=== PATIENT | male | born 1945 | race Caucasian/White ===

== ENCOUNTER 2018-04-25 09:17 | Inpatient (IN) | payer MEDICARE, OTHER, SELFPAY ==
[2018-04-25] VITALS (11 sets, daily range): BP systolic 127–183; BP diastolic 69–87; PULSE 50–67; RESP 16–18; TEMP 36.4–37.2; O2SAT 94–99; BMI 27.0; BMI 26.1
--- NOTE | 2018-04-25 09:40 | CT_ITS ---
STUDY: CTA NECK WITH CONTRAST REASON FOR EXAM: Male, 72 years old. 2 day history of intermittent dizziness. RADIATION DOSAGE (If Supplied By Facility): CTDIvol = ( 28.52 ) mGy, DLP = ( 1692.03 ) mGycm TECHNIQUE: CT angiography with multi-detector data acquisition was performed from the aortic arch to the skull base following intravenous administration of 100 ml of Isovue 370 contrast. MIP images were reconstructed from the axial data set. Post-processing of the angiographic images was performed, with multiplanar reformation and 3D reconstruction. Individualized dose optimization techniques were used for this CT. COMPARISON: None. FINDINGS: AORTIC ARCH: Normal visualized aortic arch. Normal origins of the brachiocephalic, left common carotid, and left subclavian arteries. RIGHT CAROTID ARTERIES: Normal right common carotid artery (CCA). Normal right common carotid bulb. Normal origin of the right internal carotid (ICA) artery without a hemodynamically significant stenosis. Normal visualized cervical portion of the right internal carotid artery. Minimal plaque along the posterior aspect of the proximal portion of the right internal carotid artery. Normal origin of the right external carotid artery (ECA). LEFT CAROTID ARTERIES: Normal left common carotid artery (CCA). Normal left common carotid bulb. Normal origin of the left internal carotid (ICA) artery without a hemodynamically significant stenosis. Normal visualized cervical portion of the left internal carotid artery. Minimal calcific plaque along the lateral aspect of the proximal portion of the left internal carotid artery. Normal origin of the left external carotid artery (ECA). VERTEBRAL ARTERIES: There is enhancement within the bilateral vertebral arteries with a small left vertebral artery, and a dominant right vertebral artery. 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 CT/CTA Neck W/WO Contrast IMPRESSION: No significant abnormality is seen. Electronically Signed: Tom Reed MD at 10:42 EDT Tel [phone], Service support ,
--- NOTE | 2018-04-25 09:40 | CT_ITS ---
STUDY: CTA OF THE BRAIN REASON FOR EXAM: Male, 72 years old. 2 day history of intermittent dizziness. RADIATION DOSAGE (If Supplied By Facility): CTDIvol = ( 28.52 ) mGy, DLP = ( 1692.03 ) mGycm TECHNIQUE: CT angiography was performed with a multi-detector CT scanner. Data acquisition was obtained from the skull base through the vertex following intravenous administration of 100 ml of Isovue-370. MIP images were reconstructed from the axial data set. Post-processing of the angiographic images was performed, with multiplanar reformation and 3D reconstruction. Individualized dose optimization techniques were used for this CT. COMPARISON: None. FINDINGS: Normal bilateral petrous carotid arteries. There is calcified plaque formation of the right cavernous carotid artery, without a cross-sectional luminal stenosis. There is calcified plaque formation of the left cavernous carotid artery, without a cross-sectional luminal stenosis. Normal right A1 segments of the anterior cerebral artery. Normal left A1 segments of the anterior cerebral artery. Normal intact anterior communicating artery (ACOM). Normal bilateral A2 segments of the anterior cerebral arteries. Normal right M1 and M2 segments of the middle cerebral arteries, with a normal M1 bifurcation. Normal left M1 and M2 segments of the middle cerebral arteries, with a normal M1 bifurcation. Normal right posterior communicating artery (PCOM). Normal left posterior communicating artery (PCOM). Normal bilateral vertebral arteries. Normal basilar artery with a normal basilar bifurcation. The visualized bilateral superior cerebellar (SCA) arteries are normal. Normal bilateral P1, P2 and visualized P3 segments of the posterior cerebral arteries. There is no demonstrated aneurysm of the [place]. There is no demonstrated abnormality of the visualized brain. Atherosclerotic calcification of the vertebral arteries. CT/CTA Head W/WO Contrast IMPRESSION: Normal [place] without a demonstrated aneurysm or hemodynamically significant stenosis. Electronically Signed: Tom Reed MD at 10:40 EDT Tel [phone], Service support ,
--- NOTE | 2018-04-25 09:41 | EKG12_ITS ---
Test Reason : DIZZINESS Blood Pressure : / mmHG Vent. Rate : 062 BPM Atrial Rate : 062 BPM P-R Int : 156 ms QRS Dur : 090 ms QT Int : 430 ms P-R-T Axes : 024 -14 051 degrees QTc Int : 436 ms Normal sinus rhythm Normal ECG Confirmed by JULIETTE LIND, GIOVANNI ([id number]), restaurant expeditor JOSSELIN SLAUGHTER ([id number]) on 04/28/2018 1:23:54 PM Referred By: KEENA Confirmed By:GIOVANNI SEGOVIA MD
[2018-04-25 09:56] LABS: Absolute Lymphocyte Count 1.73 X10^3/ul (0.83-4.51); Basophil# 0.02 X10^3/uL; Basophil% 0.4 % (0-1); Eosinophil# 0.16 X10^3/uL; Eosinophils% 3.1 % (0-5); Hemoglobin 17.6 g/dl (13.0-16.5); Lymphocyte # 1.73 X10^3/ul (4.0); Mean Corp Hgb Conc 35.2 g/gl (32-36); Mean Corpuscular Hgb 33.1 pg (27.0-32.0); Mean Corpuscular Volume 94.2 fL (80-94); Mean Platelet Vol. 8.7 fl (6.2-12.0); Monocyte# 0.31 X10^3/uL; Monocyte% 5.9 % (0-10); Neutrophil # 3.02 X10^3/uL (2.7-7.7); Neutrophil % 57.6 % (47-70); POSITIVE COUNT NO; POSITIVE DIFFERENTIAL NO; POSITIVE MORPHOLOGY NO; Platelet Count 160 K/mm3 (150-450); RBC Distribution Width CV 12.8 % (11.6-14.6); RBC Distribution Width SD 43.8 fl (35.1-43.9); Red Blood Count 5.31 M/mm3 (4.6-6.2); White Blood Count 5.2 K/mm3 (4.4-11.0)
[2018-04-25 10:02] LABS: Partial Thromboplast Time 29.7 Seconds (24.1-36.2)
[2018-04-25 10:05] LABS: Anion Gap 6 (5-15); BUN 12 mg/dL (7-18); BUN/Creat Ratio 10.3 RATIO (10-20); Chloride 104 mmol/L (98-107); Creatinine, Serum 1.16 mg/dL (0.70-1.30); EST Glomerular Filtration Rate 66 mL/min (>60); Est Glom Filt Rate - Afr Amer 80 mL/min (>60); Estimated Creatinine Clearance 60.31 ml/min; Glucose 151 mg/dL (74-106); Potassium 3.9 mmol/L (3.5-5.1); Sodium Level 138 mmol/L (136-145)
--- NOTE | 2018-04-25 10:54 | ED.VISSUMM ---
- ER Visit Summary Date of Service: 04/25/18 Chief Complaint: Dizziness History of Present Illness: The patient is a 72 M with dizziness. Based on his history of present illness is difficult to distinguish between disequilibrium or lightheadedness, he certainly has no vertigo. He has no vision changes, chest pain shortness of breath fever or chills. No headache. No weakness or numbness. He had 2 episodes of this in the past 2 days. No nausea or vomiting. Physical Examination: Not appear in acute distress. Moist mucous membranes, no obvious facial deformity No C-spine tenderness supple neck. Regular rate and rhythm without any obvious murmurs Clear lungs bilaterally speaking in full sentences without any obvious respiratory distress Abdomen soft and nontender no guarding or rebound Moves all extremities without any difficulty or pain. Skin does not show any obvious rashes or lesions, no trauma. Alert oriented ?3 with no gross focal deficit. His NIH stroke scale is 0 is done by me. He has a negative Romberg. Normal [id number], normal. Cerebellar exam. No nystagmus. Emergency Department Course and Treatment: Patient has an unremarkable workup, including CT angiogram and blood work, this may be dehydration because he did improve significantly after IV fluids. He will be discharged to follow-up with his PCP. Disposition: Discharge stable condition Impression: Dizziness resolved This note was generated with [employer] dictation software. It may contain incorrect words, spelling, and punctuation that were not noted in review of the chart prior to signing ED Disposition - Plan for ED Patient: Disposition: Home or Assisted Living Chief Complaint: Dizziness Instructions: ED Dizziness [facility] Referrals: Kvng Coronado MD [Primary Care Provider] - 3-5 Days
--- NOTE | 2018-04-25 10:57 | ED.DCSUM_ITS ---
- ER Visit Summary Date of Service: 04/25/18 Chief Complaint: Dizziness History of Present Illness: The patient is a 72 M with dizziness. Based on his history of present illness is difficult to distinguish between disequilibrium or lightheadedness, he certainly has no vertigo. He has no vision changes, chest pain shortness of breath fever or chills. No headache. No weakness or numbness. He had 2 episodes of this in the past 2 days. No nausea or vomiting. Physical Examination: Not appear in acute distress. Moist mucous membranes, no obvious facial deformity No C-spine tenderness supple neck. Regular rate and rhythm without any obvious murmurs Clear lungs bilaterally speaking in full sentences without any obvious respiratory distress Abdomen soft and nontender no guarding or rebound Moves all extremities without any difficulty or pain. Skin does not show any obvious rashes or lesions, no trauma. Alert oriented ?3 with no gross focal deficit. His NIH stroke scale is 0 is done by me. He has a negative Romberg. Normal [id number], normal. Cerebellar exam. No nystagmus. Emergency Department Course and Treatment: Patient has an unremarkable workup, including CT angiogram and blood work, this may be dehydration because he did improve significantly after IV fluids. He will be discharged to follow-up with his PCP. Disposition: Discharge stable condition Impression: Dizziness resolved This note was generated with [employer] dictation software. It may contain incorrect words, spelling, and punctuation that were not noted in review of the chart prior to signing ED Disposition - Plan for ED Patient: Disposition: Home or Assisted Living Chief Complaint: Dizziness Instructions: ED Dizziness [facility] Referrals: Kvng Coronado MD [Primary Care Provider] - 3-5 Days
--- NOTE | 2018-04-25 11:25 | ED.RN ---
REVIEWING DC INSTRUCTIONS WITH PT ANS . PT WAS DISCONNECTED TO MONITOR AND GETTING READY TO GO. PT HAD SUDDEN ONSET OF DIZZINESS WHILE RESTING/SITTING IN THE BED. DIAPHORETIC AND CLAMMY HANDS. BS 125. BEGAIN RECONNECTING PT TO MONITOR. PT REPORTS SUDDEN RESOLUTION OF SX. MONOT READING SINUS ALEXIS. VSS. DR BRIZUELA NOTIFIED OF PT EPISODE.
[2018-04-25 11:36] LABS: Bedside Glucose 125 mg/dL (70-110)
--- NOTE | 2018-04-25 11:44 | ED.VISSUMM ---
- ER Visit Summary Date of Service: 04/25/18 Patient was getting up he had an episode where he became quite diaphoretic and felt quite weak, this was witnessed by the nurse, apparently he was diaphoretic, and quite clammy. At the time he was not on a monitor, at this time I am worried about an arrhythmia because of this I will admit for observation on telemetry This note was generated with Cross[employer] dictation software. It may contain incorrect words, spelling, and punctuation that were not noted in review of the chart prior to signing ED Disposition - Plan for ED Patient: Disposition: Home or Assisted Living Chief Complaint: Dizziness Instructions: ED Dizziness [facility] Referrals: Kvng Coronado MD [Primary Care Provider] - 3-5 Days
--- NOTE | 2018-04-25 11:47 | ED.DCSUM_ITS ---
- ER Visit Summary Date of Service: 04/25/18 Patient was getting up he had an episode where he became quite diaphoretic and felt quite weak, this was witnessed by the nurse, apparently he was diaphoretic , and quite clammy. At the time he was not on a monitor, at this time I am worried about an arrhythmia because of this I will admit for observation on telemetry This note was generated with Hel[employer] dictation software. It may contain incorrect words, spelling, and punctuation that were not noted in review of the chart prior to signing ED Disposition - Plan for ED Patient: Disposition: Home or Assisted Living Chief Complaint: Dizziness Instructions: ED Dizziness [facility] Referrals: Kvng Coronado MD [Primary Care Provider] - 3-5 Days
--- NOTE | 2018-04-25 12:14 | NURSING ---
DR EDUARDA BRIZUELA
--- NOTE | 2018-04-25 12:19 | ED.RN ---
PRESENTS TO DESK STATING MY IS FEELING CLAMMY. HR NOTED TO BE IN LOW 50'S-UPPER 40'S AT THIS TIME. PT REMAINS A&OX3, WITH COMPLAINTS OF FEELING DIZZY AND DIAPHORETIC. AWAITING ADMISSION AT THIS TIME.
--- NOTE | 2018-04-25 12:23 | PCM.HP.STD ---
Problem List (1) Dizziness Status: Acute (2) Essential (primary) hypertension Status: Chronic (3) Gout Status: Chronic History of Present Illness Date of Admission: 04/25/18 Chief Complaint: Dizziness The patient is a 72 year old M with past medical history is none for hypertension, gout who presented with dizziness. Patient symptoms started a day prior to coming in he was apparently walking to a restaurant when his symptoms occurred. Later did resolve however he had recurrence on the morning of his presentation. He had to hold out onto the wall in order to ambulate. Patient was seen in the emergency department found to be relatively bradycardic with heart rates in the 50s. CT of the head, CTA of the head and neck obtained in the emergency department came back unremarkable patient was admitted to monitored bed for subsequent evaluation Past Medical History Past Medical History (Chronic Problems): Chronic Problems Essential (primary) hypertension (Chronic) Gout (Chronic) Allergies No Known Allergies Allergy (Verified 04/25/18 09:18) Home Medications: Ambulatory Orders Medication Instructions Recorded Amlodipine [Norvasc] 10 mg PO QHS 04/25/18 Aspirin [Aspirin, Baby] 81 mg PO QHS 04/25/18 Febuxostat [Uloric] 80 mg PO DAILY 04/25/18 Lisinopril [Zestril] 40 mg PO QHS 04/25/18 Metoprolol Tartrate [Lopressor 50 mg PO QHS 04/25/18 (beta joy)] Smoking Status: Never smoker - *Family History Paternal History Items: Heart Disease Review of Systems Constitutional: Denies: Anorexia, Chills, Fever, Night Sweats, Weight Change HEENT: Denies: Head Aches, Sinus Congestion, Sinus Drainage Cardiovascular: Denies: Chest Pain, Orthopnea, Palpitations, Paroxysmal Noc. Dyspnea Respiratory: Denies: Cough, Shortness of breath at rest, Shortness of breath upon exertion, Sputum production Gastrointestinal: Denies: Abdominal Pain, Hematemesis, Hematochezia, Nausea, Melena, Vomiting Genitourinary: Denies: Dysuria, Frequency, Hematuria, Urgency Musculoskeletal: Denies: Joint Pain, Joint Tenderness Skin: Denies: Rash Neurological: Denies: Focal weakness, Numbness, Tingling Psychiatric: Denies: Homicidal Ideations, Suicidal Ideations Hematologic/ Lymphatic: Denies: Easy Bruising, Easy Bleeding VTE Information - Inpt Only VTE Present on Admission: No VTE Mechan Device Prophylaxis: Knee High SALMA Hose VTE Pharm Prophylaxis ordered?: Yes Patient Problems: Active and Suspected Problems Dizziness (Acute) BPH (benign prostatic hyperplasia) (Acute) Objective: GENERAL: cooperative HEENT: Clear conjunctiva, moist oral mucosa NECK; supple, normal thyroid, no distended JVD. CHEST: Clear to auscultation bilaterally, HEART: Regular S1 S2, no audible murmurs ABDOMEN: soft, non-tender, normoactive bowel sounds, RECTAL: deferred EXTREMITIES: No edema, no clubbing, no cyanosis. OXYACETYLENE BURNER: Awake; no lateralizing signs. SKIN: No Rash - Physical Exam Vital Signs Temp Pulse Resp BP Pulse Ox 97.9 F 58 L 18 138/82 H 99 04/25/18 09:18 04/25/18 11:36 04/25/18 11:36 04/25/18 11:36 04/25/18 11:36 Oxygen Delivery Method Room Air Weight: 85.5 kg Body Mass Index (BMI) 27.0 Laboratory Tests Past 24 Hrs 04/25/18 04/25/18 04/25/18 09:23 09:23 09:23 WBC 5.2 RBC 5.31 Hgb 17.6 H Hct 50.0 MCV 94.2 H MCH 33.1 H MCHC 35.2 RDW 12.8 RDW Differential 43.8 Plt Count 160 MPV 8.7 Immature Gran % (Auto) 0.000 Neut % (Auto) 57.6 Lymph % (Auto) 33.0 [place] % (Auto) 5.9 Eos % (Auto) 3.1 Baso % (Auto) 0.4 Absolute Neuts (auto) 3.0 Absolute Lymphs (auto) 1.73 Total Counted Not Reportable PT 13.0 INR 1.0 APTT 29.7 Sodium 138 Potassium 3.9 Chloride 104 Carbon Dioxide 28.0 Anion Gap 6 BUN 12 Creatinine 1.16 Estim Creat Clear Calc 60.31 Est GFR (MDRD) Af Amer 80 Est GFR (MDRD) Non-Af 66 BUN/Creatinine Ratio 10.3 Glucose 151 H Calcium 9.0 Troponin I < 0.015 POC Glucose 04/25/18 11:28 POC Glucose 125 H Assessment/Plan All Active Problems Dizziness (Acute) BPH (benign prostatic hyperplasia) (Acute) Patient is a 72 year old gentleman presented with dizziness 1. Acute dizziness: Patient has been admitted to a monitored bed. As part of his management ordered every 4 neuro checks, MRI of the brain to rule out posterior circulation CVA. CT angiogram of the head and neck obtained as part of his initial assessment came back unremarkable. 2. Hypertension-blood pressure controlled, home medications continued with dose adjustment as needed 3. Gout patient is on Urolic did continue 4. DVT prophylaxis SC Lovenox Code Visit OBSV E&M: 14822 Initial observation care L3
--- NOTE | 2018-04-25 15:41 | MRI_ITS ---
STUDY: MRI BRAIN WITHOUT CONTRAST REASON FOR EXAM: Male, 72 years old. Syncope and dizziness TECHNIQUE: Standardized multiplanar fat and water weighted pulse sequences were obtained. COMPARISON: None. FINDINGS: Normal size of the ventricles and extra-axial spaces for the patient's age. Mild periventricular white matter ischemic change without evidence for acute infarct.. There is restricted diffusion in left cerebellar hemisphere consistent with acute ischemic changes Normal bilateral basal ganglia. Normal thalami. There is no extra-axial fluid accumulation. Normal flow voids within the major intracranial circulation suggesting patency by spin echo criteria except for increased signal within the left vertebral artery consistent with delayed flow or occlusion. Normal sella turcica, pituitary gland, infundibular stalk, optic chiasm and hypothalamus. Normal tectal plate and pineal gland. Normal midbrain, brian and medulla. Normal basal cisterns. Normal bilateral temporal bones. Normal bilateral internal auditory canals. No demonstrated orbital abnormality, within the constraints of a routine brain study. Minor mucosal thickening in the maxillary and ethmoid sinuses.. Normal calvarium and skull base. Normal visualized soft tissue structures. Normal visualized upper cervical spine. 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 Electronically Signed: Tin Ashton MD at 18:35 EDT , Service support ,
[2018-04-25 16:26] LABS: Magnesium 2.2 mg/dL (1.6-2.6); Thyroid Stim Hormone (TSH) 2.51 uIU/mL (0.358-3.74)
[2018-04-25] MEDS: CLARIFY ORDER NOTE (16:45)
--- NOTE | 2018-04-25 20:44 | NURSING ---
Dr. Luis Franklin notified of positive MRI results. Asked if any doctor to see pt. irizarry and give results. MD will see in AM since [facility] is 0.
[2018-04-25] MEDS: Metoprolol Tartrate 50 MG Tablet PO (21:58)
[2018-04-25] MEDS: Atorvastatin Calcium 20 MG Tablet PO (21:58)
[2018-04-25] MEDS: Aspirin 81 MG TAB.CHEW PO (21:58)
[2018-04-25] MEDS: Febuxostat 40 MG TABLET 80 MG PO (21:59)
[2018-04-25] MEDS: Lisinopril 40 MG Tablet PO (21:59)
[2018-04-25] MEDS: amLODIPine 10 MG Tablet PO (22:00)
[2018-04-26] VITALS (13 sets, daily range): BP systolic 121–146; BP diastolic 77–91; PULSE 46–73; RESP 16–20; TEMP 36.6–37.2; O2SAT 95–96; BMI 26.1
[2018-04-26 06:47] LABS: Anion Gap 8 (5-15); BUN 13 mg/dL (7-18); Calcium,Total 8.7 mg/dL (8.5-10.1); Chloride 109 mmol/L (98-107); Cholesterol 219 mg/dL (200); EST Glomerular Filtration Rate 78 mL/min (>60); Est Glom Filt Rate - Afr Amer 95 mL/min (>60); Estimated Creatinine Clearance 69.96 ml/min; Glucose 97 mg/dL (74-106); High Density Lipoprotein 42 mg/dL; Potassium 4.1 mmol/L (3.5-5.1); Sodium Level 144 mmol/L (136-145); Triglycerides 194 mg/dL; Very Low Density Lipoprotein 39 mg/dL (5-40)
--- NOTE | 2018-04-26 09:02 | PCM.PN.HOSP ---
Patient Problems: Active and Suspected Problems Dizziness (Acute) BPH (benign prostatic hyperplasia) (Acute) Subjective: Patient is a 72-year-old gentleman with past medical history significant for hypertension who presented with dizziness. 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 Objective: GENERAL: cooperative HEENT: Clear conjunctiva, moist oral mucosa NECK; supple, normal thyroid, no distended JVD. CHEST: Clear to auscultation bilaterally, HEART: Regular S1 S2, no audible murmurs ABDOMEN: soft, non-tender, normoactive bowel sounds, RECTAL: deferred EXTREMITIES: No edema, no clubbing, no cyanosis. PHARMACIST CRITICAL CARE: Awake; no lateralizing signs. SKIN: No Rash Vitals/I&O's: Vital Signs Temp Pulse Resp BP Pulse Ox 99.0 F 51 L 16 144/77 H 96 04/26/18 06:11 04/26/18 06:55 04/26/18 06:11 04/26/18 06:11 04/26/18 06:11 Oxygen Delivery Method Room Air Weight: 82.6 kg Body Mass Index (BMI) 26.1 Intake and Output for Last 24 Hours 04/24/18 04/25/18 04/26/18 23:59 23:59 23:59 Intake Total 560 / 560 Balance 560 / 560 Laboratory Results 04/25/18 16:19: Troponin I < 0.015 04/25/18 19:14: Troponin I < 0.015 04/26/18 05:45: Sodium 144, Potassium 4.1, Chloride 109 H, Carbon Dioxide 27.0, Anion Gap 8, BUN 13, Creatinine 1.00, Estim Creat Clear Calc 69.96, Est GFR (MDRD) Af Amer 95, Est GFR (MDRD) Non-Af 78, BUN/Creatinine Ratio 13.0, Glucose 97, Calcium 8.7, Triglycerides 194, Cholesterol 219 H, LDL Cholesterol 138 H, VLDL Cholesterol 39, HDL Cholesterol 42 Current Medications Acetaminophen (Tylenol) 650 mg PO Q6H PRN PRN PRN Reason: Mild Pain (scale 0-3)/T>100.7 Al Hydroxide/Mg Hydroxide (Mylanta Ii) 30 ml PO Q6H PRN PRN PRN Reason: Gastric Burning Amlodipine Besylate (Norvasc) 10 mg PO QHS [facility] Last Admin: 04/25/18 22:00 Dose: 10 mg Aspirin (Aspirin, Baby) 81 mg PO QHS [facility] Last Admin: 04/25/18 21:58 Dose: 81 mg Atorvastatin Calcium (Lipitor) 20 mg PO QHS [facility] Last Admin: 04/25/18 21:58 Dose: 20 mg Clopidogrel Bisulfate (Plavix) 75 mg PO DAILY [facility] Docusate Sodium (Colace) 200 mg PO BID PRN PRN PRN Reason: Constipation Enoxaparin Sodium (Lovenox) 40 mg SC DAILY@1000 RUBENS Lisinopril (Zestril) 40 mg PO QHS [facility] Last Admin: 04/25/18 21:59 Dose: 40 mg Magnesium Hydroxide (Milk Of Magnesia) 30 ml PO DAILY PRN PRN Reason: Constipation Metoprolol Tartrate (Lopressor (Beta Willa)) 50 mg PO QHS [facility] Last Admin: 04/25/18 21:58 Dose: 50 mg Morphine Sulfate () 2 - 4 mg IV Q3H PRN PRN PRN Reason: Severe Pain (pain scale 6-10) Oxycodone HCl (Oxyir) 5 mg PO Q4H PRN PRN PRN Reason: Moderate Pain (pain scale 4-5) Prochlorperazine Edisylate (Compazine Iv) 10 mg IV Q6H PRN PRN PRN Reason: Nausea/Vomiting Sodium Chloride () 5 - 30 ml IV UD PRN PRN Reason: SALINE FLUSH Zolpidem Tartrate (Ambien (Generic)) 5 mg PO QHS PRN PRN PRN Reason: INSOMNIA Medical Necessity - Tobacco Use Smoking Status: Never smoker Assessment/Plan All Active Problems Dizziness (Acute) BPH (benign prostatic hyperplasia) (Acute) Patient is a 72 year old gentleman presented with dizziness 1. 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 CT Jannie of the head and neck came back unremarkable patient has been managed with dual antiplatelet therapy, starting therapy requested for PT OT eval and consultation was placed to neurology 2. Hypertension-blood pressure controlled, home medications continued with dose adjustment as needed 3. Gout patient is on Urolic did continue 4. DVT prophylaxis SC Lovenox Clinical Impression(s) from Imaging Studies Head CTA 04/25/18 09:40 IMPRESSION: Normal [place] without a demonstrated aneurysm or hemodynamically significant stenosis. Electronically Signed: Tom Reed MD at 10:40 EDT Tel [phone], Service support , Neck CTA 04/25/18 09:40 IMPRESSION: No significant abnormality is seen. Electronically Signed: Tom Reed MD at 10:42 EDT Tel [phone], Service support , Brain MRI 04/25/18 15:41 IMPRESSION: Mild periventricular white matter ischemic changes without evidence for acute infarct. Electronically Signed: Tin Ashton MD at 18:35 EDT , Service support , Code Visit OBSV E&M: 01323 Subsequent observation care L3
--- NOTE | 2018-04-26 09:07 | PN_ITS ---
Patient Problems: Active and Suspected Problems Dizziness (Acute) BPH (benign prostatic hyperplasia) (Acute) Subjective: Patient is a 72-year-old gentleman with past medical history significant for hypertension who presented with dizziness. 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 Objective: GENERAL: cooperative HEENT: Clear conjunctiva, moist oral mucosa NECK; supple, normal thyroid, no distended JVD. CHEST: Clear to auscultation bilaterally, HEART: Regular S1 S2, no audible murmurs ABDOMEN: soft, non-tender, normoactive bowel sounds, RECTAL: deferred EXTREMITIES: No edema, no clubbing, no cyanosis. MULE DRIVER: Awake; no lateralizing signs. SKIN: No Rash Vitals/I&O's: Vital Signs Temp Pulse Resp BP Pulse Ox 99.0 F 51 L 16 144/77 H 96 04/26/18 06:11 04/26/18 06:55 04/26/18 06:11 04/26/18 06:11 04/26/18 06:11 Oxygen Delivery Method Room Air Weight: 82.6 kg Body Mass Index (BMI) 26.1 Intake and Output for Last 24 Hours 04/24/18 04/25/18 04/26/18 23:59 23:59 23:59 Intake Total 560 / 560 Balance 560 / 560 Laboratory Results 04/25/18 16:19: Troponin I < 0.015 04/25/18 19:14: Troponin I < 0.015 04/26/18 05:45: Sodium 144, Potassium 4.1, Chloride 109 H, Carbon Dioxide 27.0, Anion Gap 8, BUN 13, Creatinine 1.00, Estim Creat Clear Calc 69.96, Est GFR ( MDRD) Af Amer 95, Est GFR (MDRD) Non-Af 78, BUN/Creatinine Ratio 13.0, Glucose 97, Calcium 8.7, Triglycerides 194, Cholesterol 219 H, LDL Cholesterol 138 H, VLDL Cholesterol 39, HDL Cholesterol 42 Current Medications Acetaminophen (Tylenol) 650 mg PO Q6H PRN PRN PRN Reason: Mild Pain (scale 0-3)/T>100.7 Al Hydroxide/Mg Hydroxide (Mylanta Ii) 30 ml PO Q6H PRN PRN PRN Reason: Gastric Burning Amlodipine Besylate (Norvasc) 10 mg PO QHS [facility] Last Admin: 04/25/18 22:00 Dose: 10 mg Aspirin (Aspirin, Baby) 81 mg PO QHS [facility] Last Admin: 04/25/18 21:58 Dose: 81 mg Atorvastatin Calcium (Lipitor) 20 mg PO QHS [facility] Last Admin: 04/25/18 21:58 Dose: 20 mg Clopidogrel Bisulfate (Plavix) 75 mg PO DAILY [facility] Docusate Sodium (Colace) 200 mg PO BID PRN PRN PRN Reason: Constipation Enoxaparin Sodium (Lovenox) 40 mg SC DAILY@1000 RUBENS Lisinopril (Zestril) 40 mg PO QHS [facility] Last Admin: 04/25/18 21:59 Dose: 40 mg Magnesium Hydroxide (Milk Of Magnesia) 30 ml PO DAILY PRN PRN Reason: Constipation Metoprolol Tartrate (Lopressor (Beta Willa)) 50 mg PO QHS [facility] Last Admin: 04/25/18 21:58 Dose: 50 mg Morphine Sulfate () 2 - 4 mg IV Q3H PRN PRN PRN Reason: Severe Pain (pain scale 6-10) Oxycodone HCl (Oxyir) 5 mg PO Q4H PRN PRN PRN Reason: Moderate Pain (pain scale 4-5) Prochlorperazine Edisylate (Compazine Iv) 10 mg IV Q6H PRN PRN PRN Reason: Nausea/Vomiting Sodium Chloride () 5 - 30 ml IV UD PRN PRN Reason: SALINE FLUSH Zolpidem Tartrate (Ambien (Generic)) 5 mg PO QHS PRN PRN PRN Reason: INSOMNIA Medical Necessity - Tobacco Use Smoking Status: Never smoker Assessment/Plan All Active Problems Dizziness (Acute) BPH (benign prostatic hyperplasia) (Acute) Patient is a 72 year old gentleman presented with dizziness 1. 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 CT Jannie of the head and neck came back unremarkable patient has been managed with dual antiplatelet therapy, starting therapy requested for PT OT eval and consultation was placed to neurology 2. Hypertension-blood pressure controlled, home medications continued with dose adjustment as needed 3. Gout patient is on Urolic did continue 4. DVT prophylaxis SC Lovenox Clinical Impression(s) from Imaging Studies Head CTA 04/25/18 09:40 IMPRESSION: Normal [place] without a demonstrated aneurysm or hemodynamically significant stenosis. Electronically Signed: Tom Reed MD at 10:40 EDT Tel [phone], Service support , Neck CTA 04/25/18 09:40 IMPRESSION: No significant abnormality is seen. Electronically Signed: Tom Reed MD at 10:42 EDT Tel [phone], Service support , Brain MRI 04/25/18 15:41 IMPRESSION: Mild periventricular white matter ischemic changes without evidence for acute infarct. Electronically Signed: Tin Ashton MD at 18:35 EDT , Service support , Code Visit OBSV E&M: 11235 Subsequent observation care L3
[2018-04-26] MEDS: Enoxaparin 40 MG/0.4 ML Syringe SC (10:09)
[2018-04-26] MEDS: Clopidogrel Bisulfate 75 MG Tablet PO ×2 (10:09→21:41)
--- NOTE | 2018-04-26 13:44 | CASEMGMT ---
Face to Face with patient for initial transition planning/care coordination assessment. KO COFFEY introduced self and role at [facility], pt voices understanding and consents to assessment at this time. Pt is sitting up in bed in no distress at this time. Pt is A/Ox4 at this time and answers all questions appropriately at this time. Care providers, pharmacy, and demographics verified. See attached link. Pt voices no further concerns/needs at this time. Advised pt to ask for CM if any further questions/concerns/needs arise, voices understanding. PLAN: [place]
--- NOTE | 2018-04-26 14:01 | PCM.CONS.GEN ---
Problem List (1) Stroke Status: Acute Qualifiers: CVA mechanism: unspecified Qualified Code(s): I63.9 - Cerebral infarction, unspecified (2) Dizziness Status: Acute Reason for Consult Date of Consultation: 04/26/18 Reason for Consultation: stroke History of Present Illness: The patient is a 72 year old CM with PMH HTN, gout admitted with dizziness. Per patient his dizziness started on Tuesday (04/24/18) when he was in [place] visiting family, he felt light headed and was imbalanced, continued to have symptoms yesterday and then came to ED. Denies any room spinning sensation, denies any focal motor weakness, sensory loss, ESPINAL or visual disturbances. Per patient he had to hold on to walk, and was imbalance with dizziness, denies any nausea and vomiting. MRI brain done on admission showed acute left cerebellar stroke, CTA head/neck showed left vert hypoplastic. [] Past Medical History Past Medical History (Chronic Problems): Chronic Problems Essential (primary) hypertension (Chronic) Gout (Chronic) Allergies No Known Allergies Allergy (Verified 04/25/18 09:18) Home Medications: Ambulatory Orders Medication Instructions Recorded Amlodipine [Norvasc] 10 mg PO QHS 04/25/18 Aspirin [Aspirin, Baby] 81 mg PO QHS 04/25/18 Febuxostat [Uloric] 80 mg PO DAILY 04/25/18 Lisinopril [Zestril] 40 mg PO QHS 04/25/18 Metoprolol Tartrate [Lopressor 50 mg PO QHS 04/25/18 (beta joy)] Lives: Spouse/ Significant Other Smoking Status: Never smoker Alcohol: Occasional Drugs: None - *Family History Paternal History Items: Heart Disease Review of Systems Constitutional: Reports: - - complete ROS negative except as documented in HPI Patient Problems: Active and Suspected Problems Dizziness (Acute) BPH (benign prostatic hyperplasia) (Acute) Stroke (Acute) - Physical Exam General: Alert HEENT: Atraumatic, Normocephalic Oral: Moist Mucosa Neck: Supple Lungs: Clear to auscultation Cardiovascular: Normal S1, Normal S2 Abdomen: Bowel Sounds Present Extremities: No cyanosis Skin: No rashes Musculoskeletal: No Tenderness to Palpation of Joints or Extremities Neurological: - - consious, alert, AoAx3, CN 2-12 grossly intact, power 5/5 all 4 extremities, no sensory loss, no cerebellar signs, Reflexes + B/L B/S/T/K/A, gait deferred, NIHSS 0 at present. Psych/Mental Status: Normal Affect Vital Signs Temp Pulse Resp BP Pulse Ox 98.7 F 60 16 146/89 H 95 04/26/18 10:05 04/26/18 11:00 04/26/18 10:05 04/26/18 10:05 04/26/18 10:05 Oxygen Delivery Method Room Air Intake and Output for Last 24 Hours 04/24/18 04/25/18 04/26/18 23:59 23:59 23:59 Intake Total 360 / 360 Balance 360 / 360 Assessment/Plan All Active Problems Dizziness (Acute) BPH (benign prostatic hyperplasia) (Acute) Stroke (Acute) The patient is a 72 year old CM with PMH HTN, gout admitted with dizziness. Per patient his dizziness started on Tuesday (04/24/18) when he was in [place] visiting family, he felt light headed and was imbalanced, continued to have symptoms yesterday and then came to ED. Denies any room spinning sensation, denies any focal motor weakness, sensory loss, ESPINAL or visual disturbances. Per patient he had to hold on to walk, and was imbalance with dizziness, denies any nausea and vomiting. MRI brain done on admission showed acute left cerebellar stroke, CTA head/neck showed left vert hypoplastic. Impression Acute left cerebellar infarct Plan -MRI brain and CTA head/neck reviewed -ON ASA and started on Plavix. Dual AP for 3 weeks, then switch to single AP, bleeding risks discussed in detail -Lipitor 80 mg PO q hs -Await TTE -LDL-138, await Hba1c -Recommend 30 day event recorder -Stroke risk factors discussed and stroke education provided -Patient counseled to avoid smoking and alcohol -PT/OT -GI/DVT prophylaxis -Fall precautions -Further medical management per primary team. -Follow up with Neurology as outpatient in 2-3 weeks -Please call with questions if any -Thank you for allowing us to participate in patient's care and management I spent 60 minutes taking history, doing physical examination, reviewing medical records, coordinating care and counseling the patient. Code Visit Inpatient E&M: 87856 Init Hosp L3
--- NOTE | 2018-04-26 15:39 | ECHOD_ITS ---
Reason For Study: TIA/CVA Procedure This was a 2D Doppler, Color Flow transthoracic echocardiogram. Exam performed portable in patient room. Left Ventricle Normal size and thickness. The estimated ejection fraction is 65 %. Stage 1 diastolic dysfunction. No regional wall motion abnormalities noted. Right Ventricle Normal size and thickness. Normal systolic function. Atria Normal left atrium. Normal right atrium. Normal atrial septum. Bubble contrast study negative for right to left interatrial shunt. Mitral Valve The mitral valve is structurally normal. No prolapse or stenosis seen. Trivial mitral valve insufficiency. Tricuspid Valve Normal tricuspid valve. Trivial tricuspid valve insufficiency. Unable to estimate RV systolic pressure/pulmonary artery pressure due to technically difficult study. Aortic Valve Normal aortic valve. Trisinus/trileaflet aortic valve. Pulmonic Valve The pulmonic valve is not well visualized. Great Vessels Normal aortic root. Normal arch. Normal inferior vena cava. Inferior vena cava collapse with sniff. Pericardium/Pleural No pericardial effusion. Medication Performed a rapid injection of agitated mix of 9 cc saline and 1cc air to assess for atrial septal defect. MMode/2D Measurements & Calculations LVIDd: 4.9 cm IVSd: 1.3 cm Ao root diam: 3.5 cm LVIDs: 3.2 cm LVPWd: 1.1 cm LA dimension: 3.2 cm FS: 34.7 % LAV(MOD-bp): 60.2 ml LA A4 area: 20.5 cm2 RA A4 area: 15.3 cm2 LAV(MOD-bp) Indexed: 30.0 ml/m2 LAV(MOD-sp2): 50.9 ml LAV(MOD-sp4): 59.1 ml Doppler Measurements & Calculations MV E max daryn: 54.9 cm/sec Lat Peak E' Daryn: 8.1 cm/sec Med Peak E' Daryn: 6.9 cm/sec MV A max daryn: 82.0 cm/sec E/E' lat: 6.8 E/E' med: 7.9 MV E/A: 0.67 Ao V2 max: 140.1 cm/sec LV V1 max: 126.3 cm/sec PA V2 max: 127.9 cm/sec Ao max P.8 mmHg LV V1 max P.4 mmHg Interpretation Summary The estimated ejection fraction is 65 %. Stage 1 diastolic dysfunction. Bubble contrast study negative for right to left interatrial shunt. Trivial mitral valve insufficiency. Trivial tricuspid valve insufficiency. Unable to estimate RV systolic pressure/pulmonary artery pressure due to technically difficult study. Ordering Physician: Ashish Mar Referring Physician: Kvng Coronado M.D. Performed By: Megha Joe RDCS
[2018-04-26 21:28] LABS: Hemoglobin A1c 5.1 % (4.2-6.3)
[2018-04-26] MEDS: Atorvastatin Calcium 80 MG Tablet PO (21:41)
[2018-04-26] MEDS: Metoprolol Tartrate 50 MG Tablet PO (21:41)
[2018-04-26] MEDS: Aspirin 81 MG TAB.CHEW PO (21:41)
[2018-04-26] MEDS: amLODIPine 10 MG Tablet PO (21:42)
[2018-04-26] MEDS: Febuxostat 40 MG TABLET 80 MG PO (21:42)
[2018-04-26] MEDS: Lisinopril 40 MG Tablet PO (21:42)
[2018-04-27 01:15] VITALS: BP 118/76; PULSE 48; RESP 16; TEMP 36.6; O2SAT 94
[2018-04-27 02:15] VITALS: BMI 26.1
[2018-04-27 03:04] VITALS: PULSE 45
[2018-04-27 05:15] VITALS: BP 124/70; PULSE 47; RESP 18; TEMP 36.6; O2SAT 95
[2018-04-27 06:56] VITALS: PULSE 46
[2018-04-27 07:45] VITALS: BMI 26.1
[2018-04-27 09:50] VITALS: BP 160/81; PULSE 54; RESP 18; TEMP 36.9; O2SAT 97
--- NOTE | 2018-04-27 10:33 | DCINST_ITS ---
- Discharge Diagnoses Current Active Problems: Current Active and Chronic Problems Dizziness (Acute) Essential (primary) hypertension (Chronic) BPH (benign prostatic hyperplasia) (Acute) Gout (Chronic) Stroke (Acute) You will use the following diet at home:: Cardiac Your food should be the consistency of: Regular Instructions: ED Dizziness UKO Allergies/Adverse Reactions: Allergies No Known Allergies Allergy (Verified 04/25/18 09:18) Medications to take at Discharge Amlodipine [Norvasc] 10 mg PO QHS 04/25/18 Aspirin [Aspirin, Baby] 81 mg PO QHS 04/25/18 Febuxostat [Uloric] 80 mg PO DAILY 04/25/18 Lisinopril [Zestril] 40 mg PO QHS 04/25/18 Metoprolol Tartrate [Lopressor (beta joy)] 50 mg PO QHS 04/25/18 Atorvastatin Calcium [Lipitor] 80 mg PO QHS #90 tab 04/27/18 Clopidogrel Bisulfate [Plavix] 75 mg PO DAILY #90 tab 04/27/18 The following prescriptions were given: Atorvastatin Calcium [Lipitor] 80 mg PO QHS #90 tab Clopidogrel Bisulfate [Plavix] 75 mg PO DAILY #90 tab Orders to be completed after discharge: Physical Therapy Evaluation Location: None Selected Primary Care Physician: Kvng Coronado MD [Primary Care Provider] - 3-5 Days Test Results: Test results from this visit will be discussed in further detail at your follow- up appointment, if applicable. Please Follow Up With: Marcie Jain MD When: in 1-2 weeks Proposed Discharge Date: 04/27/18
--- NOTE | 2018-04-27 10:35 | DS.PCM_ITS ---
Discharge Date and Diagnosis - Problem List Patient Problems: Active and Suspected Problems Cerebellar stroke (Acute) Dizziness (Acute) BPH (benign prostatic hyperplasia) (Acute) Stroke (Acute) Date of Admission: 04/25/18 Date of Discharge: 04/27/18 - Primary Discharge Diagnosis Active and Suspected Problems Cerebellar stroke (Acute) Dizziness (Acute) BPH (benign prostatic hyperplasia) (Acute) Stroke (Acute) - Secondary Discharge Diagnosis Chronic Problems Essential (primary) hypertension (Chronic) Gout (Chronic) Hospital Course and Treatment Imaging Results: Clinical Impression(s) from Imaging Studies Head CTA 04/25/18 09:40 IMPRESSION: Normal [place] without a demonstrated aneurysm or hemodynamically significant stenosis. Electronically Signed: Tom Reed MD at 10:40 EDT Tel [phone], Service support , Neck CTA 04/25/18 09:40 IMPRESSION: No significant abnormality is seen. Electronically Signed: Tom Reed MD at 10:42 EDT Tel [phone], Service support , Brain MRI 04/25/18 15:41 IMPRESSION: Mild periventricular white matter ischemic changes without evidence for acute infarct. Electronically Signed: Tin Ashton MD at 18:35 EDT , Service support , Summary of Care Provided: Patient is a 72-year-old gentleman with past medical history significant for hypertension who presented with dizziness. 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 1. 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 CT Angioo of the head and neck came back unremarkable patient has been managed with dual antiplatelet therapy, starting therapy requested for PT OT eval and consultation was placed to neurology. Patient was discharged home on dual antiplatelet therapy starting therapy as well as outpatient physical therapy with plans for patient to follow-up with his PCP within 5-7 days as well as Dr. Jain within 1-2 weeks. 2. Hypertension-blood pressure controlled, home medications continued with dose adjustment as needed 3. Gout patient is on Urolic did continue 4. Dyslipidemia new diagnosis patient was discharged home on Lipitor 80 mg p.o. nightly 5. DVT prophylaxis SC Lovenox Discharge Diet: Low fat/ Low Cholesterol Discharge Activity: Return to Normal Activity Home Medications: Medications to take at Discharge Amlodipine [Norvasc] 10 mg PO QHS 04/25/18 Aspirin [Aspirin, Baby] 81 mg PO QHS 04/25/18 Febuxostat [Uloric] 80 mg PO DAILY 04/25/18 Lisinopril [Zestril] 40 mg PO QHS 04/25/18 Metoprolol Tartrate [Lopressor (beta joy)] 50 mg PO QHS 04/25/18 Atorvastatin Calcium [Lipitor] 80 mg PO QHS #90 tab 04/27/18 Clopidogrel Bisulfate [Plavix] 75 mg PO DAILY #90 tab 04/27/18 Following Prescrptions Were Given to Patient: Atorvastatin Calcium [Lipitor] 80 mg PO QHS #90 tab Clopidogrel Bisulfate [Plavix] 75 mg PO DAILY #90 tab Other Amb Orders: Physical Therapy Evaluation Location: None Selected Primary Care Physician: Kvng Coronado MD [Primary Care Provider] - 3-5 Days Please Follow Up With: Marcie Jain MD When: in 1-2 weeks Patient Instructions: ED Dizziness UKO Disposition: Home Minutes spent on discharge:: 35 Patient Condition:: Stable Medical Necessity - Tobacco Use Smoking Status: Never smoker Meaningful Use Info Meaningful Use Diagnoses (Choose all that apply): Ischemic CVA - CVA Therapy Assessed for PT,OT and/or ST?: Yes - Ischemic Stroke Antithrombotic order at d/c?: Yes Dx of Atrial fib/flutter?: No Statins at discharge?: Yes Primary Dx Acute Ischemic CVA?: Yes IV tPA ordered during stay?: No Reason IV t-PA not ordered: Treatment not Indicated Code Visit Inpatient E&M: 96811 Disch Hosp
[2018-04-27] MEDS: Enoxaparin 40 MG/0.4 ML Syringe SC (10:53)
[2018-04-27 11:00] VITALS: PULSE 59
== END 2018-04-27 14:00 | disposition home or self-care (01) | DRG 66 ==
LOC: ED 10:56 → PCU 13:19
PROVIDERS: Psychiatry & Neurology Neurology; Admitting Provider Internal Medicine; Emergency Provider Emergency Medicine; Family Provider Family Medicine; PCP Family Medicine; Visit Provider Internal Medicine
DX: I63.9 Cerebral infarction, unspecified (principal); I10 Essential (primary) hypertension; M10.9 Gout, unspecified; R42 Dizziness and giddiness; N40.0 Benign prostatic hyperplasia without lower urinary tract symptoms; E78.5 Hyperlipidemia, unspecified
CPT/HCPCS: 36415; 70496; 70498; 70551; 80048; 80061; 82962; 83036; 83735; 84443; 84484; 85025; 85610; 85730; 93005; 93306; 97161; 97165; 99283; Q9967

== ENCOUNTER → 2018-07-27 10:02 | Outpatient (CLI) | payer MEDICARE, OTHER, SELFPAY ==
[2018-07-27 12:30] LABS: Cholesterol 146 mg/dL (200); High Density Lipoprotein 52 mg/dL; Triglycerides 113 mg/dL; Very Low Density Lipoprotein 23 mg/dL (5-40)
== END ==
PROVIDERS: Family Provider Family Medicine; PCP Family Medicine; Visit Provider Family Medicine
DX: E78.00 Pure hypercholesterolemia, unspecified (principal)
CPT/HCPCS: 36415; 80061

== ENCOUNTER → 2019-07-02 12:28 | Outpatient (CLI) | payer MEDICARE, OTHER, SELFPAY ==
[2019-07-02 13:58] LABS: Absolute Lymphocyte Count 1.14 X10^3/uL (0.83-4.51); Absolute Neutrophil Count 2.5 X10^3/uL (2.0-7.7); Basophil# 0.03 X10^3/uL; Basophil% 0.7 % (0-1); Eosinophil# 0.05 X10^3/uL; Eosinophils% 1.2 % (0-5); Hematocrit 50.7 % (40-54); Hemoglobin 17.3 g/dL (13.0-16.5); Lymphocyte # 1.14 X10^3/ul (4.0); Lymphocyte % 27.1 % (19-41); Mean Corp Hgb Conc 34.1 g/dL (32-36); Mean Corpuscular Volume 93.7 fL (80-94); Mean Platelet Vol. 8.7 fl (6.2-12.0); Monocyte# 0.46 X10^3/uL; Monocyte% 10.9 % (0-10); NRBC Flagged by Analyzer 0 % (0-5); Neutrophil # 2.52 X10^3/uL (2.7-7.7); Neutrophil % 59.9 % (47-70); Platelet Count 192 K/mm3 (150-450); RBC Distribution Width CV 12.7 % (11.6-14.6); Red Blood Count 5.41 M/mm3 (4.6-6.2); White Blood Count 4.2 K/mm3 (4.4-11.0)
[2019-07-02 14:22] LABS: Anion Gap 5 (5-15); BUN 11 mg/dL (7-18); BUN/Creat Ratio 11.5 RATIO (10-20); Calcium,Total 9.6 mg/dL (8.5-10.1); Chloride 107 mmol/L (98-107); Creatinine, Serum 0.96 mg/dL (0.70-1.30); EST Glomerular Filtration Rate 82 mL/min (>60); Est Glom Filt Rate - Afr Amer 99 mL/min (>60); Glucose 96 mg/dL (74-106); Potassium 4.4 mmol/L (3.5-5.1); Sodium Level 142 mmol/L (136-145)
== END ==
PROVIDERS: Family Provider Family Medicine; PCP Family Medicine; Visit Provider Family Medicine
DX: R53.83 Other fatigue (principal); R97.20 Elevated prostate specific antigen [PSA]
CPT/HCPCS: 36415; 80048; 82306; 84153; 84443; 85025

== ENCOUNTER → 2023-09-12 | Outpatient (CLI) | payer MEDICARE, OTHER, SELFPAY ==
[2023-09-12 13:59] LABS: ALB/GLOB Ratio 1.1 RATIO (0.9-2.4); AST(SGOT) 25 U/L (15-37); Alanine Aminotransfer ALT/SGPT 40 U/L (16-61); Albumin, Serum 3.8 g/dL (3.2-5.0); Alkaline Phosphatase 91 U/L (45-117); Anion Gap 7 (5-15); BUN 12 mg/dL (7-18); BUN/Creat Ratio 11.9 RATIO (10-20); Calcium,Total 9.2 mg/dL (8.5-10.1); Chloride 110 mmol/L (98-107); Cholesterol 172 mg/dL (200); Creatinine, Serum 1.01 mg/dL (0.70-1.30); EST Glomerular Filtration Rate 76 mL/min (>60); Est Glom Filt Rate - Afr Amer 92 mL/min (>60); Globulin 3.5 g/dL (2.2-4.2); Glucose 106 mg/dL (74-106); High Density Lipoprotein 54 mg/dL; Potassium 4.1 mmol/L (3.5-5.1); Protein, Total 7.3 g/dL (6.4-8.2); Sodium Level 143 mmol/L (136-145); Triglycerides 185 mg/dL; Very Low Density Lipoprotein 37 mg/dL (5-40)
== END | disposition home or self-care (01) ==
LOC: MFPLAB 09:45
PROVIDERS: PCP Family Medicine; Visit Provider Family Medicine
DX: E78.00 Pure hypercholesterolemia, unspecified (principal); Z12.5 Encounter for screening for malignant neoplasm of prostate
CPT/HCPCS: 36415; 80053; 80061; 84153; G0103

== ENCOUNTER → 2023-12-27 | Outpatient (CLI) | payer MEDICARE, OTHER, SELFPAY ==
[2023-12-27 10:02] LABS: Absolute Lymphocyte Count 1.87 X10^3/uL (0.83-4.51); Absolute Neutrophil Count 2.4 X10^3/uL (2.0-7.7); Basophil# 0.03 X10^3/uL; Basophil% 0.6 % (0-1); Eosinophil# 0.06 X10^3/uL; Eosinophils% 1.2 % (0-5); Hematocrit 49.9 % (40-54); Hemoglobin 16.4 g/dL (13.0-16.5); Lymphocyte # 1.87 X10^3/ul (0.83-4.51); Lymphocyte % 37.3 % (19-41); Mean Corp Hgb Conc 32.9 g/dL (32-36); Mean Corpuscular Hgb 32.2 pg (27.0-32.0); Mean Platelet Vol. 8.9 fl (6.2-12.0); Monocyte# 0.63 X10^3/uL; Monocyte% 12.6 % (0-10); NRBC Flagged by Analyzer 0 % (0-5); Neutrophil # 2.39 X10^3/uL (2.7-7.7); Neutrophil % 47.7 % (47-70); Platelet Count 251 K/mm3 (150-450); RBC Distribution Width CV 12.8 % (11.6-14.6); Red Blood Count 5.09 M/mm3 (4.6-6.2)
[2023-12-27 10:30] LABS: Anion Gap 3 (5-15); BUN 14 mg/dL (7-18); Calcium,Total 9.5 mg/dL (8.5-10.1); Chloride 113 mmol/L (98-107); EST Glomerular Filtration Rate 77 mL/min (>60); Est Glom Filt Rate - Afr Amer 93 mL/min (>60); Glucose 115 mg/dL (74-106); Potassium 4.2 mmol/L (3.5-5.1); Sodium Level 145 mmol/L (136-145)
== END | disposition home or self-care (01) ==
LOC: MFPLAB 08:42
PROVIDERS: PCP Family Medicine; Visit Provider Family Medicine
DX: R07.9 Chest pain, unspecified (principal)
CPT/HCPCS: 36415; 80048; 85025

== ENCOUNTER → 2024-01-03 | Outpatient (CLI) | payer MEDICARE, OTHER, SELFPAY ==
--- NOTE | 2024-01-03 16:06 | STRESSREP ---
Stress Test Report Exercise myocardial perfusion stress test. 78-year-old man with a history of abnormal EKG Stress protocol: Resting EKG demonstrates normal sinus rhythm with a rate of 61 bpm resting blood pressure is 148/84 mmHg. The patient exercised according to the regular Izaiah protocol for a total duration of 5 minutes and 30 seconds attaining a maximum heart rate of 142 bpm which was 99% of maximum predicted heart rate; the maximum workload was 7 metabolic equivalents. At rest there were no ST or T wave changes noted to suggest ischemia and at peak exercise horizontal ST depression of approximately 1 mm noted in leads II, III and aVF suggestive of ischemia were noted. No clinical angina was noted the test was terminated due to the target heart rate being achieved/fatigue. The peak blood pressure was 192/82 mmHg. Rate-pressure product was 24,700. Myocardial perfusion protocol. 10.7 mCi of technetium 99m sestamibi was injected at rest. The patient exercised according to regular Izaiah protocol for total duration of 5 minutes and 30 seconds and at peak exercise 34.2 mCi of technetium 99m sestamibi was injected stress images were obtained stress and rest images were reconstructed in comparing the short axis vertical long and horizontal long axis. Gated images were also obtained. Perfusion SPECT analysis: Review of the stress images demonstrate normal uptake of tracer noted in all areas of the myocardium however significant portion of the anterior wall and apex demonstrated reduced perfusion. The resting images demonstrate near normal uptake of tracer noted in all areas of the myocardium. The above is suggestive of anteroapical ischemia at a moderate workload. Gated SPECT analysis: The gated ejection fraction is 63%. Conclusion: Abnormal exercise myocardial perfusion stress test at a moderate workload, involving the anterior wall and apex and a moderate size zone. Preserved ejection fraction.
== END | disposition home or self-care (01) ==
LOC: CVS 06:06
PROVIDERS: PCP Family Medicine; Referring Provider Family Medicine; Visit Provider Family Medicine
DX: R07.9 Chest pain, unspecified (principal)
CPT/HCPCS: 78452; 93017; A9500; A4216

== ENCOUNTER 2024-01-10 06:58 | Day surgery (SDC) | payer MEDICARE, OTHER, SELFPAY ==
--- NOTE | 2024-01-06 10:06 | RAD_ITS ---
EXAM: XR CHEST, 2 VIEWS CLINICAL INDICATION: chest pain TECHNIQUE: Frontal and lateral views of the chest. COMPARISON: No relevant prior studies available. FINDINGS: LUNGS AND PLEURAL SPACES: Unremarkable. No consolidation or edema. No pneumothorax. No effusion. HEART: Unremarkable. Cardiac silhouette not enlarged. MEDIASTINUM: Central airways and mediastinal contour are unremarkable. BONES/JOINTS: Mild thoracic spondylosis. No acute fracture. SOFT TISSUES: Unremarkable. RAD/Chest PA and Lateral IMPRESSION: No radiographic evidence of acute cardiopulmonary disease. Electronically Signed: Jing Flores MD at 2:29 EDT ,
[2024-01-09 10:11] VITALS: BMI 27.1
--- NOTE | 2024-01-10 08:36 | CL.D_ITS ---
Patient Name: JANETT ANGELES Study Date: 01/10/2024 Performing: Mack Holbrook MD Ht: 70 inches 177.8 cm : 1945 Wt: 189 lbs 85.73 kg Age: 78 Gender: male BSA: 2.04 PROCEDURE(S) PERFORMED [id number])[facility] CLINICAL PROFILE AND INDICATIONS Indications: Suspected CAD Heart Failure: None Stress/Imaging Date: 01/03/24Stress Test with SPECT MPI: Positive High Risk CAD Presentations: Unstable angina. 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 Preserved ejection fraction. RECOMMENDATIONS Referred for immediate PCI DESCRIPTION OF PROCEDURE The patient arrived to the procedure lab. The risks and benefits of the procedure as well as a full description of our services here and current unavailability of surgical backup were fully explained to the patient and/or their significant other prior to the catheterization. The Timeout was completed, verifying the correct patient and procedure. The patient's procedural site was prepped and draped in the usual fashion. Local anesthetic was given subcutaneously to right radial region with Lidocaine 2%. Using a modified Seldinger technique, arterial access was obtained via the right radial artery, a 6Fr sheath was inserted. Left Coronary Artery selective angiography was performed in multiple views using a 5 Fr. 4.0 Lerona catheter. Right Coronary Artery selective angiography was then performed in multiple views using a 5 Fr. 4.0 Lerona catheter. Left Ventriculography was performed in DENIS projection using a 5 Fr. Pigtail catheter. LV to AO pullback pressures were then recorded. CORONARY ANGIOGRAPHY DOMINANCE: Right Dominant LEFT HEART ASSESSMENT Left Ventricular Ejection Fraction: by LV Gram 60 % Normal LV wall motion Normal Left Ventricular systolic function LEFT MAIN: Mild calcification, No significant disease noted LEFT ANTERIOR DESCENDING ARTERY: Medium size vessel with complex eccentric proximal to mid 95% stenosis with mild calcification present. CIRCUMFLEX ARTERY: Mild luminal irregularities RIGHT CORONARY ARTERY: Mild luminal irregularities COMPLICATIONS PROCEDURE MEDICATIONS Versed 1 mg IV Fentanyl 50 mcg IV Versed 1 mg IV Oxygen: 2 L/min via nasal cannula Heparin given IA 01/10/2024 08:01:52 SUMMARY OF HEMODYNAMIC DATA Time AIR REST AO 144/68 (94) SA 08:14:08 AO 123/63 (86) 08:16:58 LV 112/1, 5 08:22:08 LV 111/1, 5 08:22:16 LV 109/1, 7 08:22:42 LV 105/2, 7 08:22:50 LVp 103/0, 6 08:22:55 AOp 111/50 (73) 08:23:02 ECG 08:25:23 Signed By Mack Holbrook MD On 01/10/2024 08:35:38 Mack Holbrook MD
== END 2024-01-10 15:30 | disposition short-term general hospital (02) ==
LOC: CLSP 06:59
PROVIDERS: PCP Family Medicine; Referring Provider Internal Medicine Cardiovascular Disease; Visit Provider Internal Medicine Cardiovascular Disease
DX: I25.110 Atherosclerotic heart disease of native coronary artery with unstable angina pectoris (principal); I10 Essential (primary) hypertension
CPT/HCPCS: 71046; 93458; 99152; 99153; J7040; Q9967; C1769; C1894

== ENCOUNTER → 2024-02-13 | Outpatient (CLI) | payer MEDICARE, OTHER, SELFPAY ==
[2024-02-13 09:09] VITALS: BMI 27.1
[2024-02-13 10:27] LABS: Hematocrit 46.7 % (40-54); Mean Corp Hgb Conc 34.3 g/dL (32-36); Mean Corpuscular Hgb 32.1 pg (27.0-32.0); Mean Corpuscular Volume 93.8 fL (80-94); Mean Platelet Vol. 8.9 fl (6.2-12.0); Platelet Count 223 K/mm3 (150-450); RBC Distribution Width CV 12.5 % (11.6-14.6); RBC Distribution Width SD 42.6 fl (35.1-43.9); Red Blood Count 4.98 M/mm3 (4.6-6.2); White Blood Count 6.7 K/mm3 (4.4-11.0)
[2024-02-13 11:41] LABS: ALB/GLOB Ratio 1.2 RATIO (0.9-2.4); AST(SGOT) 28 U/L (15-37); Alanine Aminotransfer ALT/SGPT 46 U/L (16-61); Albumin, Serum 4.1 g/dL (3.2-5.0); Alkaline Phosphatase 98 U/L (45-117); Anion Gap 4 (5-15); BUN 12 mg/dL (7-18); BUN/Creat Ratio 12.7 RATIO (10-20); Calcium,Total 9.8 mg/dL (8.5-10.1); Chloride 109 mmol/L (98-107); Creatinine, Serum 0.94 mg/dL (0.70-1.30); EST Glomerular Filtration Rate 82 mL/min (>60); Est Glom Filt Rate - Afr Amer 100 mL/min (>60); Globulin 3.4 g/dL (2.2-4.2); Glucose 97 mg/dL (74-106); Potassium 3.9 mmol/L (3.5-5.1); Protein, Total 7.5 g/dL (6.4-8.2); Sodium Level 140 mmol/L (136-145)
== END | disposition home or self-care (01) ==
LOC: MTLAB 09:28
PROVIDERS: PCP Family Medicine
DX: I25.10 Atherosclerotic heart disease of native coronary artery without angina pectoris (principal)
CPT/HCPCS: 36415; 80053; 85027

== ENCOUNTER → 2024-02-13 | Outpatient (CLI) | payer MEDICARE, OTHER, SELFPAY ==
--- NOTE | 2024-02-13 08:03 | PCM.CR.HP2 ---
CR - History & Physical General Arrival date:: 02/13/24 Arrival time:: 08:03 Date of Referral:: 02/02/24 Date of CR Evaluation:: 02/13/24 Referring Physician: Dr. Holbrook Primary Diagnosis: PCI with coronary stent History of Present Cardiac Event Onset Date PTCA or coronary stenting:: Yes Vessel: LAD 01/11/24 Medications Ambulatory Orders Medication Instructions Recorded amlodipine 10 mg tablet 10 mg PO QHS blood pressure 04/25/18 lisinopril 40 mg tablet 40 mg PO QHS blood pressure 04/25/18 metoprolol tartrate 50 mg tablet 50 mg PO QHS blood pressure 04/25/18 atorvastatin 80 mg tablet 80 mg PO QHS #90 tabs 04/27/18 clopidogrel 75 mg tablet 75 mg PO DAILY #90 tabs 04/27/18 aspirin 81 mg tablet,delayed 81 mg PO DAILY #90 tabs 01/06/24 release (Adult Aspirin Regimen) clonazepam 0.5 mg tablet (Klonopin) 0.5 mg PO BID PRN anxiety 01/06/24 Allergies Allergies Penicillins Adverse Reaction (Severe, Verified 01/06/24 09:31) as a child, passed out after a dental appt Sleep Disorder Evaluation Hx of Sleep Apnea: No Do you snore loudly (louder than talking or can be heard through closed doors)?: No Do you often feel tired/ fatigued/ sleepy during daytime?: No Has anyone observed you stop breathing during sleep?: No History of Hypertension (for STOP score): Yes STOP Results: Negative Advanced Directives Advanced Directives Power of Diabetes Education Coordinator: Yes Living Will: Yes Advance Directives Information Provided: No Advance Directives on File: Yes DNR Order?:: No Past Medical History Covid-19 Screening Physicial Symptoms Other Clinical Concerns Exposure Risk Pertinent Comorbidities 65 years or older:: Yes Has a serious heart condition:: Yes Past Medical Illness Past Medical History (Updated 02/02/24 @ 13:05 by Shiloh Perez) Anxiety F41.9 BPH (benign prostatic hyperplasia) N40.0 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 Chest pain R07.9 Dizziness R42 Essential (primary) hypertension I10 Gout M10.9 Stroke I63.9 Past Surgical History Past Surgical History (Updated 02/02/24 @ 13:07 by Shiloh Perez) History of coronary artery stent placement (01/11/24) Z95.5 PCI of proximal to mid LAD high grade calcified lesion w/ 2 overlapping stents; proximal segment of the stent postdilated with a 3.25mm NC balloon @ [facility] History of prostate surgery Z98.890 Family History Summary Family History Father Hypertension CVA (cerebral vascular accident) Social History Smoking History Smoking Status: Never smoker Alcohol Use Alcohol Usage: Yes Occupation Occupation (List type of work in comments):: Retired Hobbies, Recreation, Social Activities Hobbies: Sports and Other Recreational Activities: I am able to engage in all my recreational activities Social Environment Status Marital Status: Current Living Arrangements Living Environment:: Spouse Children How many children do you have?: 2 Do any of your children live nearby?: Yes Safety Do you feel safe in your surroundings?: Yes Assistance Do you need any assistance at home?: no Review of Systems Review of Systems Hints Review of Present Symptoms: Reports PVD, Fatigue, Appetite - Normal, Appetite - Special Diet and Sleep - Normal; Denies Shortness of Breath at Rest, Shortness of Breath with Exertion, Operative Discomfort, Angina, Wound Healing, Dizziness/Lightheadedness, Heart Arrhythmia/Irregularities or Sexual Changes Pain Is Patient Pain Free?: No Pain Location: pelvis Pain Level: 5/10 Risk Factor Assessment Chief Complaint Chief Complaint: PCI with coronary stent Vital Signs Blood Pressure: 158/91 Pulse Pulse Rate: 71 Hypertension How long have you been treated?: 20-30 years Blood Pressure Sitting - Right Arm: 158/91 Diabetes Nutrition Referral for Diabetes: No Obesity Height: 5 ft 10 in Weight:: 189 lb 8 oz Weight in Pounds: 189.5 lbs Body Mass Index (BMI): 27.1 Nutritional Referral for Obesity: No Physical Inactivity Physical Inactivity: Reg Exercise 30 min/day and Recreational activity Risk Stratification Risk Guidelines: Moderate Risk: Risk Factor for Smoking, Risk Factor for Dyslipidemia, Risk Factor for Diabetes, Risk Factor for Obesity, Risk Factor for Sedentary Lifestyle and Risk Factor for Depression and Highest Risk: Risk Factor for Hypertension For Smoking Smoking Risk Guidelines For Dyslipidemia Dyslipidemia Risk Guidelines For Diabetes Mellitus Diabetes Risk Guidelines For Obesity/Overweight Obesity/Overweight Risk Guidelines For Hypertension Hypertension Risk Guidelines For Sedentary Lifestyle Sedentary Lifestyle Risk Guidelines For Depression Depression Risk Guidelines Family History Family History Father Hypertension CVA (cerebral vascular accident) Motivation Motivation to Participate On a scale of 1 to 10, how prepared are you to commit to attending program?: 9 What do you see as barriers to successfully being able to complete the program?: busy life What do you see as the benefits of succesfully completing the program? In other words, what do you hope to get out of participating in the program?: confidence Are there issues you are dealing with that will interfere with completing the program?: no Do you have a spouse or signficant other, family or friends who will help support you to complete the program?: yes
[2024-02-13 08:12] VITALS: BP 158/91; PULSE 71
--- NOTE | 2024-02-13 08:12 | CR.ITP_ITS ---
Diagnosis General Information Admitting Diagnosis: PCI with coronary stent Personal Learning Style:: Audio/Visual Stage of change r/t lifestyle modifications:: Contemplation Gave educational material for:: Treating Heart Disease, How The Heart Works, W hat it means to have Heart Disease, How Coronary Artery Disease is Diagnosed, Heart Procedures, What Heart Medications Do, Risk Factors & Modifications, Living an Active Life, Nutrition, Emotions & Heart Disease, Stress Management & Relaxation and Sleep Disorders & Heart Disease Education/Goals Cardiac Rehabilitation Goals Personal Goals: Initial Assessment: Improve energy level, Get back to work, or to resume activities faster, Improve knowledge of cardiac disease, Improve muscle strength and endurance, Improve diet and eating habits (eat healthier) and Control risk factors (learn risk factor modification) Scale for measuring improvement of personal goals Diagnosis & Disease Process Outcomes/Goals: Pt IDs own risk factors & lifestyle modifications by Session 10, Verbalizes symptoms of angina & response by session 3., Pt independently manages and Other Additional Outcomes/Goals: Plan/Interventions: Assist Pt to ID & engage in lifestyle modification to reduce CVD risk, Instruct on individual risk factors, Review symptoms of angina & emergency actions, Review secondary diagnosis & identify educational needs. and Other see comment 30 day Reassessments:: Not Met 30 day Reassessments:: Not Met 30 day Reassessments:: Not Met 30 day Reassessments:: Not Met Final Reassessments:: Not Met Safety Referral to Physical Therapy: No Referral to [facility] Case Management: No Fall Risk Assessed:: Yes Assistive Devices:: None Exercise - Initial Assessment Visit Date of Eval: 02/13/24 (initial eval ) Mets: Pre-: >3 METS for 30 minutes by discharge, >5 METS for 30 minutes by discharge, >7 METS for 30 minutes by discharge and Unable to meet goal due to: (see comment below) Physician Prescribed Exercise Modalities: Treadmill, Rower, Airdyne, NuStep, SciFit and Lateral Analysis Reporting Developer Frequency: 3x/week for 12 weeks [36 sessions] Intensity: 60-80% of age predicted maximum heart rate reserve Duration: 30 - 45 minutes Current METSs:: 3 Target Heart Rate:: 93-107 Resting Blood Pressure: 158/91 EKG Type: SR Outcomes & Goals Goals:: Verbalizes understanding of THR, RPE & goal METS by session 6, Documents in home exercise log/reports 30 min aerobic 5 day/wk by DC, Demonstrates accurate pulse taking by DC and Other additional outcome/goals: see below Intervention & Plan Exercise Program Goals: Instruct on personal THR & RPE, Instruct on MET level & personal MET goal, Show patient to take own pulse /validate performance until accurate, Instruct on home exercise and Other additional plan/int Physical Activity Home Exercise Physical Activity - Home Exercise: Safe Exercise, Warm-up, Self-monitoring, Cool-Down, Home Exercise > 30 min Daily and Sitting Time <3 hours/daily Outcomes & Goals Outcomes/Goals: Demonstrates correct Warm-up/exercise Cool-Down (S3) if = 2.5 METs, Verbalizes symptoms of exercise intolerance by Session 3 (S3), Demonstrate safe equipment use (S3) & follows exercise prescrition (6) and Other: See below Intervention & Plan Plan/Intervention: Instruct warm-up & cool-down if exercising at > 2 METs, Ins truct on symptoms of exercise intolerance & actions to take, Instruct & monitor on saf, Assess intial functional capacity & safety risk and Other See below Nutrition - Initial Assessment Program Goals Nutrition Program Goals Patient has diagnosis of Hyperlipidemia (ICD E78)?: No Visit Date of Eval: 02/13/24 (initial eval ) Cholesterol/Lipids (Other Core Measures) Outcomes/Goals: Pt IDs own risk factors & lifestyle modifications by Session 10, Verbalizes symptoms of angina & response by session 3., Pt independently manages and Other Additional Outcomes/Goals: Intervention/Plan: Advocate for lipid panel cholesterol medication if applicable, Instruct on personal lipid levels & lipid goals/NCEP guidelines, Instruct on cholesterol and Other additional plan/int Referral to dietitian:: No Diabetes (Other Core Measures) Diabetes Type: Not Applicable Weight Mgt (Other Care) Height: 5 ft 10 in Weight:: 189 lb 8 oz BMI: 27.1 Diagnosis Overweight/Obesity BMI> 30% ICD-10 E66: No Diagnosis High BMI/Morbid Obesity BMI> 35% ICD-10 Z68: No Outcomes/Goals: Pt sets, maintains & shows weight loss goal & trend during rehab and Other additional outcomes/goals Intervention/Plan: Instruct on ideal BMI & set weight loss goal w/patient, Assist pt to ID & incorporate diet changes for weight loss by S9, Refer to Structured Weight Loss program as appropriate, Encourage goal of using 250- 300dcal per session for weight loss and Other additional plan/interventions Healthy Eating Habits Will attend diet classes:: Yes Outcomes/Goals:: Consume diet rich in vegs,fruits,whole grain/high fiber,fish,lean meat, Limit sat/trans fats,cholesterol & added salts & sugars and Other additional outcome/goals: Intervention/Plan:: Assess current eating habits and Other Additional plan/interventions Education Gave educational materials for:: Signs & symptoms of hypoglycemia, Signs & symptoms of hyperglycemia, Relate diabetes to coronary artery disease and Healthy eating Core - Initial Assessment Visit Date of Eval: 02/13/24 (initial eval) Medication Compliance Preventative Medication(s):: Aspirin, DELORIS inhibitor, Statin/lipid and Beta joy H/O mental health issues: depression, anxiety, or addiction?: Yes Doesn?t believe in the benefits of treatment?: No Believes medications are unnecessary or harmful?: No Has a concern about medication side effects?: No Expresses concern over the cost of medications?: No Outcomes/Goals: Verbalizes medications,desired effect & common side effects @ DC, Pt self-reports following medication regimen, Keeps card in wallet w/medications listed by DC and Other additional outcome/goals: Interventions/plans: Instruct on medication effects & side effects, Review medication list w/patient every two weeks, Instruct importance of taking meds as ordered & assist problem solving and Other additional Tobacco Use Tobacco Use: Non-smoker Hypertension Hypertension Diagnosis:: Hypertension ICD-10 I10 Resting Blood Pressure:: 158/91 [place] [employer] Hypertension Guidelines Outcomes/Goals: Able to verbalize/achieve optimal blood pressure <130/80, Incorporates diet changes & exercise for blood pressure control by DC and Other additional outcomes/goals Interventions/plan: Instruct on optimal blood pressure, hypertension & medications, Instruct on effects of sodium, alcohol, stress, exercise &hypertension and Other additional plan/interventions Tobacco Cessation Referral Smoking Cessation Referral:: No Individual Education/Counseling:: No Education Schedule Given:: Yes Psychosocial - Initial Assess VIsit Date of Eval: 02/13/24 (initial eval ) History of previous Mental disease:: Yes History of Emotional Disorders: Anxious Target Goals Target Goals Psychosocial Test Tool Used:: PHQ-9 Questionnaire phq-9 Severity Outcomes/Goals: See list Psychosocial Outcomes/Goals:: ID's personal stressors & 2 strategies to manage stress by discharge and Other Additional outcome/goals: Intervention/Plan: See List Interventions/Plan:: Assess stressors,coping strategies & signs of derpression on admission, Instruct/assist pt to develop coping & personal stress Mgt strategies, Refer to Behavioral Health if appropriate, Refer to Physician if appropriate, Instruct patient to recognize signs & symptoms of depression, Instruct patient to recog and Other additional plan/intervention Patient Health Questionnaire PHQ-9 Screening Initial Assessment: 1. Little interest or pleasure in doing things: Not at all 2. Feeling down, depressed, or hopeless: Not at all 3. Trouble falling or staying asleep, or sleeping too much: Not at all 4. Feeling tired or having little energy: Several days 5. Poor appetite or overeating: Not at all 6. Feeling bad about yourself -- or that you are a failure or have let yourself or your family down: Not at all 7. Trouble concentrating on things, such as reading the newspaper or watching television: Not at all 8. Moving or speaking so slowly that other people could have noticed. Or the opposite - being so fidgety or restless that you have been moving around a lot more than usual: Not at all 9. Thoughts that you would be better off , or of hurting yourself in some way: Not at all How difficult have these problems made it for you to do your work, take care of things at home, or get along with other people?: Not difficult at all Total Score: 1 VINNY-Q SV Test Statements CAD is a disease of the arteries in the heart: False Examples of risk factors for heart disease: True Angina is chest pain or discomfort: I Don't Know The benefits of resistance training include: True Eating more meat and dairy products: False Anti-platelet medications such as aspirin are important: I Don't Know The only effective way to manage stress: False An exercise warm-up slowly increases heart rate: True Prepared, processed foods usually have high sodium: True Depression is common after a heart attack: I Don't Know The statin medications lower cholesterol: I Don't Know To control blood pressure, lower the amount of sodium: I Don't Know If someone gets chest discomfort during walking: False Transfats are partially hydrogenated vegetable oils: I Don't Know Sleep apnea that is not treated increases the risk: I Don't Know To control cholesterol, one should become a vegetarian: False Someone knows if he/she is exercising at the right level: I Don't Know Diabetes cannot be prevented with exercise & health eating: I Don't Know Stress is a large risk for heart attack: True A diet that can help lower blood pressure is rich in: I Don't Know Total Score Total Correct Responses: 10 Self-Efficacy 6-Item Scale Initial Assessment: We would like to know how confident you are in doing certain activities. Please select your confidence level for: Fatigue Select Number: 10 Physical Discomfort or Pain Select Number: 10 Emotional Distress Select Number: 10 Other Symptoms or Health Problems Select Number: 10 Different Tasks and Activities Select Number: 10 Medication Select Number: 10 Total Score:: 10 Nutrition Survey Nutrition Survey Instructions Scoring Instructions Nutrition Survey Initial: Have you lost >10 lbs over the past 2 months without trying?: No Are you following a special diet at home for diabetes, low fat, or low salt?: No Are you interested in meeting with a dietitian for help understanding your diet?: No Do you eat less than 3 meals a day?: Yes Do you eat fatty meats (diaz, sausage, ribs, etc), fried foods, desserts, large amounts of salad dressings, margarine, butter, or cheese most days?: Yes Do you have food allergies? [Enter types in comment field]: No Do you eat in restaurants more than 3 times a week?: No Do you season food with salt, seasoning salt, or garlic salt?: No Do you used canned, boxed, frozen meals, or soups, seasoning packets?: Yes Total Score:: 3 Exercise - Final/Discharge Physician Prescribed Exercise Modalities: Treadmill, Rower, Airdyne, NuStep, SciFit and Lateral Moraine Frequency: 3x/week for 12 weeks [36 sessions] Intensity: 60-80% of age predicted maximum heart rate reserve Current METSs:: 3 Target Heart Rate:: 93-107 Nutrition - 30-Day Assessment Weight Mgt (Other Care) Height: 5 ft 10 in Weight:: 189 lb 8 oz BMI: 27.1 Nutrition - 60-Day Assessment Weight Mgt (Other Care) Height: 5 ft 10 in Weight:: 189 lb 8 oz BMI: 27.1 Core - Final Assessment Hypertension Resting Blood Pressure:: 158/91 [place] [employer] Hypertension Guidelines Core - 60-Day Assessment Hypertension Resting Blood Pressure:: 158/91 [place] [employer] Hypertension Guidelines Psychosocial - 30-Day Assess Target Goals Target Goals Psychosocial - 60-Day Assess Target Goals Target Goals Psychosocial - 90-Day Assess Target Goals Target Goals Psychosocial - Final Assessmen Target Goals Target Goals Nutrition - 90-Day Assessment Weight Mgt (Other Care) Height: 5 ft 10 in Weight:: 189 lb 8 oz BMI: 27.1 Nutrition - Final Assessment Program Goals Patient has diagnosis of Hyperlipidemia (ICD E78)?: No Weight Mgt (Other Care) Height: 5 ft 10 in Weight:: 189 lb 8 oz BMI: 27.1
[2024-02-13 08:16] VITALS: BP 158/91
[2024-02-13 09:09] VITALS: BP 158/91; BMI 27.1
[2024-02-13 09:10] VITALS: BMI 27.1
== END | disposition home or self-care (01) ==
LOC: CR 07:49
PROVIDERS: PCP Family Medicine; Referring Provider Internal Medicine Cardiovascular Disease; Visit Provider Internal Medicine Cardiovascular Disease
DX: Z95.5 Presence of coronary angioplasty implant and graft (principal)

== ENCOUNTER → 2024-02-28 | Outpatient (CLI) | payer MEDICARE, OTHER, SELFPAY ==
[2024-02-13 09:09] VITALS: BMI 27.1
[2024-02-29 13:08] LABS: PSA, Free 2.68 ng/mL
== END | disposition home or self-care (01) ==
LOC: LAB 09:54
PROVIDERS: PCP Family Medicine; Referring Provider Urology; Visit Provider Urology
DX: R97.20 Elevated prostate specific antigen [PSA] (principal)
CPT/HCPCS: 36415; 84153; 84154

== ENCOUNTER 2024-03-07 08:00 | Outpatient (RCR) | payer MEDICARE, OTHER, SELFPAY ==
[2024-02-13 09:09] VITALS: BMI 27.1
== END 2024-03-09 23:59 ==
LOC: CR 08:00
PROVIDERS: PCP Family Medicine; Referring Provider Internal Medicine Cardiovascular Disease; Visit Provider Internal Medicine Cardiovascular Disease
DX: I25.10 Atherosclerotic heart disease of native coronary artery without angina pectoris (principal); Z95.5 Presence of coronary angioplasty implant and graft
CPT/HCPCS: 93798

== ENCOUNTER 2024-04-06 08:00 | Outpatient (RCR) | payer MEDICARE, OTHER, SELFPAY ==
[2024-02-13 09:09] VITALS: BMI 27.1
--- NOTE | 2024-03-14 05:09 | PCM.CR.ITP ---
Exercise - Initial Assessment Visit Session #:: 6 Comments:: Patient has missed 3 sessions of his scheduled 9 Physician Prescribed Exercise Modalities: Treadmill, Schwinn Airdyne AD-7 and SciFit Stepper Nutrition - Initial Assessment Weight Mgt (Other Care) Height: 5 ft 10 in Weight:: 189 lb BMI: 27.1 Psychosocial - Initial Assess Target Goals Target Goals Referral to Behavioral Health PS - Interventions: Yes: Attend Stress Management Classes and No: Referral to Behavioral Health if PHQ-9 score >9:, No: Referral to [facility] and No: Referral to Physician if PHQ-9 if score is 5-9: Patient Health Questionnaire PHQ-9 Screening 30-Day Re-eval Assessment: 1. Little interest or pleasure in doing things: Not at all 2. Feeling down, depressed, or hopeless: Not at all 3. Trouble falling or staying asleep, or sleeping too much: Not at all 4. Feeling tired or having little energy: Not at all 5. Poor appetite or overeating: Not at all 6. Feeling bad about yourself -- or that you are a failure or have let yourself or your family down: Not at all 7. Trouble concentrating on things, such as reading the newspaper or watching television: Not at all 8. Moving or speaking so slowly that other people could have noticed. Or the opposite - being so fidgety or restless that you have been moving around a lot more than usual: Not at all 9. Thoughts that you would be better off , or of hurting yourself in some way: Not at all How difficult have these problems made it for you to do your work, take care of things at home, or get along with other people?: Not difficult at all Total Score: 0 Self-Efficacy 6-Item Scale 30-Day Re-eval Assessment: We would like to know how confident you are in doing certain activities. Please select your confidence level for: Fatigue Select Number: 10 Physical Discomfort or Pain Select Number: 10 Emotional Distress Select Number: 10 Other Symptoms or Health Problems Select Number: 10 Different Tasks and Activities Select Number: 10 Medication Select Number: 10 Total Score:: 10 Nutrition Survey Nutrition Survey Instructions Scoring Instructions Exercise - 30-day Assessment Visit Date of Eval: 03/14/24 Session #:: 6 Comments:: Patient has missed 3 sessions of his scheduled 9 Physician Prescribed Exercise Modalities: Treadmill, Schwinn Airdyne AD-7 and SciFit Stepper Frequency: 3x/week for 12 weeks [36 sessions] Intensity: 60-80% of age predicted maximum heart rate reserve Duration: 30 - 45 minutes Current METSs:: 4.0 Target Heart Rate:: 93-107 Current RPE:: 11-12 Maximum Excercise HR:: 87 Resting Blood Pressure: 108/64 Maximum Exercise Blood Pressure: 140/70 EKG Type: NSR to Sinus tach w/rare PAC Outcomes & Goals Goals:: Verbalizes understanding of THR, RPE & goal METS by session 6, Documents in home exercise log/reports 30 min aerobic 5 day/wk by DC and Demonstrates accurate pulse taking by DC Intervention & Plan Exercise Program Goals: Instruct on personal THR & RPE, Instruct on MET level & personal MET goal, Show patient to take own pulse /validate performance until accurate and Instruct on home exercise 30-day Reassessments 30 day Reassessments:: Met Physical Activity Home Exercise Physical Activity - Home Exercise: Safe Exercise, Warm-up, Self-monitoring, Cool-Down, Home Exercise > 30 min Daily and Sitting Time <3 hours/daily Outcomes & Goals Outcomes/Goals: Demonstrates correct Warm-up/exercise Cool-Down (S3) if = 2.5 METs, Verbalizes symptoms of exercise intolerance by Session 3 (S3) and Demonstrate safe equipment use (S3) & follows exercise prescrition (6) Intervention & Plan Plan/Intervention: Instruct warm-up & cool-down if exercising at > 2 METs, Instruct on symptoms of exercise intolerance & actions to take, Instruct & monitor on saf and Assess intial functional capacity & safety risk 30-day Reassessments 30 day Reassessments:: Met Exercise - 60-day Assessment Physician Prescribed Exercise Modalities: Treadmill, Schwinn Airdyne AD-7 and SciFit Stepper Exercise - 90-day Assessment Physician Prescribed Exercise Modalities: Treadmill, Schwinn Airdyne AD-7 and SciFit Stepper Exercise - Final/Discharge Physician Prescribed Exercise Modalities: Treadmill, Schwinn Airdyne AD-7 and SciFit Stepper Nutrition - 30-Day Assessment Program Goals Nutrition Program Goals Patient has diagnosis of Hyperlipidemia (ICD E78)?: Yes Visit Date of Eval: 03/14/24 Session #:: 6 Cholesterol/Lipids (Other Core Measures) Triglycerides (mg/dL): 185 Total Cholesterol (mg/dL): 172 LDL Cholesterol (mg/dL): 81 HDL Cholesterol (mg/dL): 54 Determine presence & major risk factors that modify LDL goal: Hypertension or hypertensive medication and Age men > 45 years; women >/= 55 years Outcomes/Goals: Pt IDs own risk factors & lifestyle modifications by Session 10, Verbalizes symptoms of angina & response by session 3. and Pt independently manages Intervention/Plan: Instruct on personal lipid levels & lipid goals/NCEP guidelines and Instruct on cholesterol Referral to dietitian:: Yes Diabetes (Other Core Measures) Diabetes Type: Not Applicable Weight Mgt (Other Care) Not Applicable: Yes Height: 5 ft 10 in Weight:: 189 lb BMI: 27.1 Diagnosis Overweight/Obesity BMI> 30% ICD-10 E66: No Diagnosis High BMI/Morbid Obesity BMI> 35% ICD-10 Z68: No Outcomes/Goals: Pt sets, maintains & shows weight loss goal & trend during rehab Intervention/Plan: Instruct on ideal BMI & set weight loss goal w/patient 30 day Reassessments:: Met Healthy Eating Habits Will attend diet classes:: Yes Outcomes/Goals:: Consume diet rich in vegs,fruits,whole grain/high fiber,fish,lean meat and Limit sat/trans fats,cholesterol & added salts & sugars Intervention/Plan:: Assess current eating habits 30-day Reassessments:: Met Education Gave educational materials for:: Healthy eating Nutrition - 60-Day Assessment Weight Mgt (Other Care) Height: 5 ft 10 in Weight:: 189 lb BMI: 27.1 Core - 30-Day Assessment Visit Date of Eval: 03/14/24 Session #:: 6 Medication Compliance Preventative Medication(s):: Aspirin, Clopidogrel/P2Y12 inhibit, Statin/lipid and Beta joy H/O mental health issues: depression, anxiety, or addiction?: No Doesn?t believe in the benefits of treatment?: No Believes medications are unnecessary or harmful?: No Has a concern about medication side effects?: No Expresses concern over the cost of medications?: No Outcomes/Goals: Verbalizes medications,desired effect & common side effects @ DC, Pt self-reports following medication regimen and Keeps card in wallet w/medications listed by DC Interventions/plans: Instruct on medication effects & side effects, Review medication list w/patient every two weeks and Instruct importance of taking meds as ordered & assist problem solving 30-day Reassessments:: Met Tobacco Use Tobacco Use: Non-smoker Hypertension Hypertension Diagnosis:: Hypertension ICD-10 I10 Resting Blood Pressure:: 108/64 [place] [employer] Hypertension Guidelines Peak Exercise Blood Pressure:: 152/80 Outcomes/Goals: Able to verbalize/achieve optimal blood pressure <130/80 and Incorporates diet changes & exercise for blood pressure control by DC Interventions/plan: Instruct on optimal blood pressure, hypertension & medications and Instruct on effects of sodium, alcohol, stress, exercise &hypertension 30 day Reassessments:: Met Tobacco Cessation Referral Smoking Cessation Referral:: No Individual Education/Counseling:: No Education Schedule Given:: Yes Psychosocial - 30-Day Assess VIsit Date of Eval: 03/14/24 Session #:: 6 Not Applicable: Yes History of previous Mental disease:: No Target Goals Target Goals Psychosocial Test Tool Used:: PHQ-9 Questionnaire phq-9 Severity Referral to Behavioral Health PS - Interventions: Yes: Attend Stress Management Classes and No: Referral to Behavioral Health if PHQ-9 score >9:, No: Referral to [facility] and No: Referral to Physician if PHQ-9 if score is 5-9: Outcomes/Goals: See list Psychosocial Outcomes/Goals:: ID's personal stressors & 2 strategies to manage stress by discharge Intervention/Plan: See List Interventions/Plan:: Assess stressors,coping strategies & signs of derpression on admission, Instruct/assist pt to develop coping & personal stress Mgt strategies, Instruct patient to recognize signs & symptoms of depression and Instruct patient to recog 30-day Reassessments: 30 day Reassessments:: Met Psychosocial - 60-Day Assess Target Goals Target Goals Referral to Behavioral Health PS - Interventions: Yes: Attend Stress Management Classes and No: Referral to Behavioral Health if PHQ-9 score >9:, No: Referral to [facility] and No: Referral to Physician if PHQ-9 if score is 5-9: Outcomes/Goals: See list Psychosocial Outcomes/Goals:: ID's personal stressors & 2 strategies to manage stress by discharge Psychosocial - 90-Day Assess Target Goals Target Goals Referral to Behavioral Health PS - Interventions: Yes: Attend Stress Management Classes and No: Referral to Behavioral Health if PHQ-9 score >9:, No: Referral to [facility] and No: Referral to Physician if PHQ-9 if score is 5-9: Psychosocial - Final Assessmen Target Goals Target Goals Referral to Behavioral Health PS - Interventions: Yes: Attend Stress Management Classes and No: Referral to Behavioral Health if PHQ-9 score >9:, No: Referral to [facility] and No: Referral to Physician if PHQ-9 if score is 5-9: Nutrition - 90-Day Assessment Weight Mgt (Other Care) Height: 5 ft 10 in Weight:: 189 lb BMI: 27.1 Nutrition - Final Assessment Weight Mgt (Other Care) Height: 5 ft 10 in Weight:: 189 lb BMI: 27.1
[2024-03-14 05:13] VITALS: BP 108/64
[2024-03-14 05:17] VITALS: BP 108/64; BMI 27.1
== END 2024-04-08 23:59 ==
LOC: CR 08:00
PROVIDERS: PCP Family Medicine; Referring Provider Internal Medicine Cardiovascular Disease; Visit Provider Internal Medicine Cardiovascular Disease
DX: I25.10 Atherosclerotic heart disease of native coronary artery without angina pectoris (principal); Z95.5 Presence of coronary angioplasty implant and graft
CPT/HCPCS: 93798

== ENCOUNTER 2024-05-09 08:00 | Outpatient (RCR) | payer MEDICARE, OTHER, SELFPAY ==
[2024-03-14 05:17] VITALS: BMI 27.1
[2024-04-09 00:16] VITALS: BP 108/64
--- NOTE | 2024-04-13 08:09 | CR.ITP_ITS ---
Exercise - Initial Assessment Physician Prescribed Exercise Modalities: Treadmill, Schwinn Airdyne AD-7 and SciFit Stepper Nutrition - Initial Assessment Weight Mgt (Other Care) Height: 5 ft 10 in Weight:: 188 lb 8 oz BMI: 27.0 Psychosocial - Initial Assess Target Goals Target Goals Patient Health Questionnaire PHQ-9 Screening 60-Day Re-eval Assessment: 1. Little interest or pleasure in doing things: Not at all 2. Feeling down, depressed, or hopeless: Not at all 3. Trouble falling or staying asleep, or sleeping too much: Not at all 4. Feeling tired or having little energy: Not at all 5. Poor appetite or overeating: Not at all 6. Feeling bad about yourself -- or that you are a failure or have let yourself or your family down: Not at all 7. Trouble concentrating on things, such as reading the newspaper or watching television: Not at all 8. Moving or speaking so slowly that other people could have noticed. Or the opposite - being so fidgety or restless that you have been moving around a lot more than usual: Not at all 9. Thoughts that you would be better off , or of hurting yourself in some way: Not at all How difficult have these problems made it for you to do your work, take care of things at home, or get along with other people?: Not difficult at all Total Score: 0 Self-Efficacy 6-Item Scale 60-Day Re-eval Assessment: We would like to know how confident you are in doing certain activities. Please select your confidence level for: Fatigue Select Number: 10 Physical Discomfort or Pain Select Number: 10 Emotional Distress Select Number: 10 Other Symptoms or Health Problems Select Number: 10 Different Tasks and Activities Select Number: 10 Medication Select Number: 10 Total Score:: 10 Nutrition Survey Nutrition Survey Instructions Scoring Instructions Exercise - 30-day Assessment Physician Prescribed Exercise Modalities: Treadmill, Schwinn Airdyne AD-7 and SciFit Stepper Exercise - 60-day Assessment Visit Date of Eval: 04/13/24 Session #:: 18 Physician Prescribed Exercise Modalities: Treadmill, Schwinn Airdyne AD-7 and SciFit Stepper Frequency: 3x/week for 12 weeks [36 sessions] Intensity: 60-80% of age predicted maximum heart rate reserve Duration: 30 - 45 minutes Current METSs:: 6 Target Heart Rate:: 93-107 Current RPE:: 11-12 Maximum Excercise HR:: 87 Resting Blood Pressure: 120/70 Maximum Exercise Blood Pressure: 154/80 EKG Type: NSR to ST with rare PVC Outcomes & Goals Goals:: Verbalizes understanding of THR, RPE & goal METS by session 6, Documents in home exercise log/reports 30 min aerobic 5 day/wk by DC, Demonstrates accura te pulse taking by DC and Other additional outcome/goals: see below Intervention & Plan Exercise Program Goals: Instruct on personal THR & RPE, Instruct on MET level & personal MET goal, Show patient to take own pulse /validate performance until accurate, Instruct on home exercise and Other additional plan/int 30-day Reassessments 30 day Reassessments:: Progressing Reassessment Notes & Comments:: THR explained Physical Activity Home Exercise Physical Activity - Home Exercise: Safe Exercise, Warm-up, Self-monitoring, Cool-Down, Home Exercise > 30 min Daily and Sitting Time <3 hours/daily Outcomes & Goals Outcomes/Goals: Demonstrates correct Warm-up/exercise Cool-Down (S3) if = 2.5 METs, Verbalizes symptoms of exercise intolerance by Session 3 (S3), Demonstrate safe equipment use (S3) & follows exercise prescrition (6) and Other: See below Intervention & Plan Plan/Intervention: Instruct warm-up & cool-down if exercising at > 2 METs, Instruct on symptoms of exercise intolerance & actions to take, Instruct & monitor on saf, Assess intial functional capacity & safety risk and Other See below 30-day Reassessments 30 day Reassessments:: Progressing Reassessment Notes & Comments:: cool down encouraged Exercise - 90-day Assessment Physician Prescribed Exercise Modalities: Treadmill, Schwinn Airdyne AD-7 and SciFit Stepper Exercise - Final/Discharge Physician Prescribed Exercise Modalities: Treadmill, Schwinn Airdyne AD-7 and SciFit Stepper Nutrition - 30-Day Assessment Weight Mgt (Other Care) Height: 5 ft 10 in Weight:: 188 lb 8 oz BMI: 27.0 Nutrition - 60-Day Assessment Program Goals Nutrition Program Goals Patient has diagnosis of Hyperlipidemia (ICD E78)?: Yes Visit Date of Eval: 04/13/24 Session #:: 18 Cholesterol/Lipids (Other Core Measures) Determine presence & major risk factors that modify LDL goal: Hypertension or hypertensive medication, Low HDL cholesterol <40 mg/dL*, Family history of premature CHD in Male < 55 years: female <65 yearsFa and Age men > 45 years; women >/= 55 years Outcomes/Goals: Pt IDs own risk factors & lifestyle modifications by Session 10, Verbalizes symptoms of angina & response by session 3., Pt independently manages and Other Additional Outcomes/Goals: Intervention/Plan: Advocate for lipid panel cholesterol medication if applicable, Instruct on personal lipid levels & lipid goals/NCEP guidelines, Instruct on cholesterol and Other additional plan/int Referral to dietitian:: Yes 30-day Reassessments:: Progressing Reassessment Notes & Comments:: pt to attend nutrition class Diabetes (Other Core Measures) Diabetes Type: Not Applicable Weight Mgt (Other Care) Height: 5 ft 10 in Weight:: 188 lb 8 oz BMI: 27.0 Diagnosis Overweight/Obesity BMI> 30% ICD-10 E66: No Diagnosis High BMI/Morbid Obesity BMI> 35% ICD-10 Z68: No Outcomes/Goals: Pt sets, maintains & shows weight loss goal & trend during rehab and Other additional outcomes/goals Intervention/Plan: Instruct on ideal BMI & set weight loss goal w/patient, Assist pt to ID & incorporate diet changes for weight loss by S9, Refer to Structured Weight Loss program as appropriate, Encourage goal of using 250- 300dcal per session for weight loss and Other additional plan/interventions 30 day Reassessments:: Met Healthy Eating Habits Will attend diet classes:: Yes Outcomes/Goals:: Consume diet rich in vegs,fruits,whole grain/high fiber,fish,lean meat, Limit sat/trans fats,cholesterol & added salts & sugars and Other additional outcome/goals: Intervention/Plan:: Assess current eating habits and Other Additional plan/interventions 30-day Reassessments:: Met Education Gave educational materials for:: Signs & symptoms of hypoglycemia, Signs & symptoms of hyperglycemia, Relate diabetes to coronary artery disease and Healthy eating Core - 60-Day Assessment Visit Date of Eval: 04/13/24 Session #:: 18 Medication Compliance Preventative Medication(s):: Aspirin, Clopidogrel/P2Y12 inhibit, Statin/lipid and Beta joy H/O mental health issues: depression, anxiety, or addiction?: No Doesn?t believe in the benefits of treatment?: No Believes medications are unnecessary or harmful?: No Has a concern about medication side effects?: No Expresses concern over the cost of medications?: No Outcomes/Goals: Verbalizes medications,desired effect & common side effects @ DC, Pt self-reports following medication regimen, Keeps card in wallet w/medications listed by DC and Other additional outcome/goals: Interventions/plans: Instruct on medication effects & side effects, Review medication list w/patient every two weeks, Instruct importance of taking meds as ordered & assist problem solving and Other additional 30-day Reassessments:: Progressing Reassessment Notes & Comments:: pt encouraged to take his meds Tobacco Use Tobacco Use: Non-smoker Hypertension Hypertension Diagnosis:: Hypertension ICD-10 I10 Resting Blood Pressure:: 120/70 [place] [employer] Hypertension Guidelines Peak Exercise Blood Pressure:: 154/80 Outcomes/Goals: Able to verbalize/achieve optimal blood pressure <130/80, Incorporates diet changes & exercise for blood pressure control by DC and Other additional outcomes/goals Interventions/plan: Instruct on optimal blood pressure, hypertension & medications, Instruct on effects of sodium, alcohol, stress, exercise &hypertension and Other additional plan/interventions 30 day Reassessments:: Met Tobacco Cessation Referral Smoking Cessation Referral:: No Individual Education/Counseling:: No Education Schedule Given:: Yes Psychosocial - 30-Day Assess Target Goals Target Goals Outcomes/Goals: See list Psychosocial Outcomes/Goals:: ID's personal stressors & 2 strategies to manage stress by discharge and Other Additional outcome/goals: Psychosocial - 60-Day Assess VIsit History of Emotional Disorders: Anxious Target Goals Target Goals Outcomes/Goals: See list Psychosocial Outcomes/Goals:: ID's personal stressors & 2 strategies to manage stress by discharge and Other Additional outcome/goals: Intervention/Plan: See List Interventions/Plan:: Assess stressors,coping strategies & signs of derpression on admission, Instruct/assist pt to develop coping & personal stress Mgt strategies, Refer to Behavioral Health if appropriate, Refer to Physician if appropriate, Instruct patient to recognize signs & symptoms of depression, Instruct patient to recog and Other additional plan/intervention 30-day Reassessments: 30 day Reassessments:: Met Psychosocial - 90-Day Assess Target Goals Target Goals Psychosocial - Final Assessmen Target Goals Target Goals Nutrition - 90-Day Assessment Weight Mgt (Other Care) Height: 5 ft 10 in Weight:: 188 lb 8 oz BMI: 27.0 Nutrition - Final Assessment Weight Mgt (Other Care) Height: 5 ft 10 in Weight:: 188 lb 8 oz BMI: 27.0
[2024-04-13 08:19] VITALS: BP 120/70; BMI 27.0
== END 2024-05-09 23:59 ==
LOC: CR 08:00
PROVIDERS: PCP Family Medicine; Referring Provider Internal Medicine Cardiovascular Disease; Visit Provider Internal Medicine Cardiovascular Disease
DX: I25.10 Atherosclerotic heart disease of native coronary artery without angina pectoris (principal); Z95.5 Presence of coronary angioplasty implant and graft
CPT/HCPCS: 93798

== ENCOUNTER 2024-05-18 08:00 | Outpatient (RCR) | payer MEDICARE, OTHER, SELFPAY ==
[2024-04-13 08:19] VITALS: BMI 27.0
[2024-05-10 00:36] VITALS: BP 108/64; BP 120/70
--- NOTE | 2024-05-15 07:48 | PCM.CR.ITP ---
Exercise - Initial Assessment Physician Prescribed Exercise Modalities: Treadmill, Schwinn Airdyne AD-7 and SciFit Stepper Nutrition - Initial Assessment Weight Mgt (Other Care) Height: 5 ft 10 in Weight:: 189 lb BMI: 27.1 Psychosocial - Initial Assess Target Goals Target Goals Patient Health Questionnaire PHQ-9 Screening 90-Day Re-eval Assessment: 1. Little interest or pleasure in doing things: Not at all 2. Feeling down, depressed, or hopeless: Not at all 3. Trouble falling or staying asleep, or sleeping too much: Not at all 4. Feeling tired or having little energy: Not at all 5. Poor appetite or overeating: Not at all 6. Feeling bad about yourself -- or that you are a failure or have let yourself or your family down: Not at all 7. Trouble concentrating on things, such as reading the newspaper or watching television: Not at all 8. Moving or speaking so slowly that other people could have noticed. Or the opposite - being so fidgety or restless that you have been moving around a lot more than usual: Not at all 9. Thoughts that you would be better off , or of hurting yourself in some way: Not at all How difficult have these problems made it for you to do your work, take care of things at home, or get along with other people?: Not difficult at all Total Score: 0 Self-Efficacy 6-Item Scale 90-Day Re-eval Assessment: We would like to know how confident you are in doing certain activities. Please select your confidence level for: Fatigue Select Number: 10 Physical Discomfort or Pain Select Number: 10 Emotional Distress Select Number: 10 Other Symptoms or Health Problems Select Number: 10 Different Tasks and Activities Select Number: 10 Medication Select Number: 10 Total Score:: 10 Nutrition Survey Nutrition Survey Instructions Scoring Instructions Exercise - 30-day Assessment Physician Prescribed Exercise Modalities: Treadmill, Schwinn Airdyne AD-7 and SciFit Stepper Exercise - 60-day Assessment Physician Prescribed Exercise Modalities: Treadmill, Schwinn Airdyne AD-7 and SciFit Stepper Exercise - 90-day Assessment Visit Date of Eval: 05/15/24 Session #:: 31 Physician Prescribed Exercise Modalities: Treadmill, Schwinn Airdyne AD-7 and SciFit Stepper Frequency: 3x/week for 12 weeks [36 sessions] Intensity: 60-80% of age predicted maximum heart rate reserve Duration: 30 - 45 minutes Current METSs:: 6 Target Heart Rate:: 93-107 Current RPE:: 12-13 Maximum Excercise HR:: 104 Resting Blood Pressure: 140/70 Maximum Exercise Blood Pressure: 160/80 EKG Type: NSR to ST with rare PVC Outcomes & Goals Goals:: Verbalizes understanding of THR, RPE & goal METS by session 6, Documents in home exercise log/reports 30 min aerobic 5 day/wk by DC, Demonstrates accurate pulse taking by DC and Other additional outcome/goals: see below Intervention & Plan Exercise Program Goals: Instruct on personal THR & RPE, Instruct on MET level & personal MET goal, Show patient to take own pulse /validate performance until accurate, Instruct on home exercise and Other additional plan/int 30-day Reassessments 30 day Reassessments:: Met Physical Activity Home Exercise Physical Activity - Home Exercise: Safe Exercise, Warm-up, Self-monitoring, Cool-Down, Home Exercise > 30 min Daily and Sitting Time <3 hours/daily Outcomes & Goals Outcomes/Goals: Demonstrates correct Warm-up/exercise Cool-Down (S3) if = 2.5 METs, Verbalizes symptoms of exercise intolerance by Session 3 (S3), Demonstrate safe equipment use (S3) & follows exercise prescrition (6) and Other: See below 30-day Reassessments 30 day Reassessments:: Met Exercise - Final/Discharge Physician Prescribed Exercise Modalities: Treadmill, Schwinn Airdyne AD-7 and SciFit Stepper Nutrition - 30-Day Assessment Weight Mgt (Other Care) Height: 5 ft 10 in Weight:: 189 lb BMI: 27.1 Nutrition - 60-Day Assessment Weight Mgt (Other Care) Height: 5 ft 10 in Weight:: 189 lb BMI: 27.1 Core - 90 Day Assessment Visit Date of Eval: 05/15/24 Session #:: 31 Medication Compliance Preventative Medication(s):: Aspirin, Clopidogrel/P2Y12 inhibit, Statin/lipid and Beta joy H/O mental health issues: depression, anxiety, or addiction?: No Doesn?t believe in the benefits of treatment?: No Believes medications are unnecessary or harmful?: No Has a concern about medication side effects?: No Expresses concern over the cost of medications?: No Outcomes/Goals: Verbalizes medications,desired effect & common side effects @ DC, Pt self-reports following medication regimen, Keeps card in wallet w/medications listed by DC and Other additional outcome/goals: Interventions/plans: Instruct on medication effects & side effects, Review medication list w/patient every two weeks, Instruct importance of taking meds as ordered & assist problem solving and Other additional Tobacco Use Tobacco Use: Non-smoker Hypertension Hypertension Diagnosis:: Hypertension ICD-10 I10 Resting Blood Pressure:: 140/70 [place] [employer] Hypertension Guidelines Peak Exercise Blood Pressure:: 160/80 Outcomes/Goals: Able to verbalize/achieve optimal blood pressure <130/80, Incorporates diet changes & exercise for blood pressure control by DC and Other additional outcomes/goals Interventions/plan: Instruct on optimal blood pressure, hypertension & medications, Instruct on effects of sodium, alcohol, stress, exercise &hypertension and Other additional plan/interventions 30 day Reassessments:: Met Tobacco Cessation Referral Smoking Cessation Referral:: No Individual Education/Counseling:: No Education Schedule Given:: Yes Psychosocial - 30-Day Assess Target Goals Target Goals Psychosocial - 60-Day Assess Target Goals Target Goals Psychosocial - 90-Day Assess VIsit Date of Eval: 05/15/24 Session #:: 31 History of previous Mental disease:: Yes History of Emotional Disorders: Anxious Target Goals Target Goals Outcomes/Goals: See list Psychosocial Outcomes/Goals:: ID's personal stressors & 2 strategies to manage stress by discharge and Other Additional outcome/goals: Intervention/Plan: See List Interventions/Plan:: Assess stressors,coping strategies & signs of derpression on admission, Instruct/assist pt to develop coping & personal stress Mgt strategies, Refer to Behavioral Health if appropriate, Refer to Physician if appropriate, Instruct patient to recognize signs & symptoms of depression, Instruct patient to recog and Other additional plan/intervention 30-day Reassessments: 30 day Reassessments:: Met Psychosocial - Final Assessmen Target Goals Target Goals Nutrition - 90-Day Assessment Program Goals Nutrition Program Goals Patient has diagnosis of Hyperlipidemia (ICD E78)?: Yes Visit Date of Eval: 05/15/24 Session #:: 31 Cholesterol/Lipids (Other Core Measures) Determine presence & major risk factors that modify LDL goal: Hypertension or hypertensive medication, Low HDL cholesterol <40 mg/dL*, Family history of premature CHD in Male < 55 years: female <65 yearsFa and Age men > 45 years; women >/= 55 years Outcomes/Goals: Pt IDs own risk factors & lifestyle modifications by Session 10, Verbalizes symptoms of angina & response by session 3., Pt independently manages and Other Additional Outcomes/Goals: Intervention/Plan: Advocate for lipid panel cholesterol medication if applicable, Instruct on personal lipid levels & lipid goals/NCEP guidelines, Instruct on cholesterol and Other additional plan/int 30-day Reassessments:: Met Diabetes (Other Core Measures) Diabetes Type: Not Applicable Weight Mgt (Other Care) Height: 5 ft 10 in Weight:: 189 lb BMI: 27.1 Diagnosis Overweight/Obesity BMI> 30% ICD-10 E66: No Diagnosis High BMI/Morbid Obesity BMI> 35% ICD-10 Z68: No Outcomes/Goals: Pt sets, maintains & shows weight loss goal & trend during rehab and Other additional outcomes/goals Intervention/Plan: Instruct on ideal BMI & set weight loss goal w/patient, Assist pt to ID & incorporate diet changes for weight loss by S9, Refer to Structured Weight Loss program as appropriate, Encourage goal of using 250-300dcal per session for weight loss and Other additional plan/interventions 30 day Reassessments:: Met Healthy Eating Habits Will attend diet classes:: Yes Outcomes/Goals:: Consume diet rich in vegs,fruits,whole grain/high fiber,fish,lean meat, Limit sat/trans fats,cholesterol & added salts & sugars and Other additional outcome/goals: Intervention/Plan:: Assess current eating habits and Other Additional plan/interventions 30-day Reassessments:: Met Education Gave educational materials for:: Signs & symptoms of hypoglycemia, Signs & symptoms of hyperglycemia, Relate diabetes to coronary artery disease and Healthy eating Nutrition - Final Assessment Weight Mgt (Other Care) Height: 5 ft 10 in Weight:: 189 lb BMI: 27.1
[2024-05-15 07:53] VITALS: BP 140/70; BMI 27.1
[2024-05-15 07:57] VITALS: BP 140/70
== END 2024-06-09 23:59 ==
LOC: CR 08:00
PROVIDERS: PCP Family Medicine; Referring Provider Internal Medicine Cardiovascular Disease; Visit Provider Internal Medicine Cardiovascular Disease
DX: I25.10 Atherosclerotic heart disease of native coronary artery without angina pectoris (principal); Z95.5 Presence of coronary angioplasty implant and graft
CPT/HCPCS: 93798

== ENCOUNTER 2025-02-26 17:09 | Emergency (ER) | payer MEDICARE, OTHER, SELFPAY ==
[2024-05-15 07:53] VITALS: BMI 27.1
[2025-02-26 17:10] VITALS: BP 180/91; PULSE 81; RESP 18; TEMP 37; O2SAT 99; BMI 27.2
[2025-02-26 17:50] LABS: Mucous, Urine 0 SEEN /hpf (<or=2+)
[2025-02-26 17:55] LABS: Glucose, Dipstick Normal (Normal); Ketone-Dipstick Negative (Negative); Leukocyte Esterase-Dipstick 25 /ul (Negative); Nitrite-Dipstick Negative (Negative); Occult Blood-Urine 250 /ul (Negative); Protein-Dipstick 500 mg/dl (Negative); Urine Bilirubin Dipstick Negative (Negative); Urine Urobilinogen Normal (Normal)
[2025-02-26 18:05] LABS: Color, Urine Red (Yellow)
[2025-02-26 18:06] LABS: Urine Clarity Cloudy (Clear)
[2025-02-26 18:13] LABS: Red Blood Cells-Urine > 100 SEEN /hpf (0-5)
[2025-02-26 18:14] LABS: Bacteria 2+ /hpf (None Seen); Squamous Epithelial Cells - UA 0-5 SEEN /hpf (0-5); White Blood Cells 10-25 SEEN /hpf (0-5)
[2025-02-26 18:15] LABS: Amorphous Sediment 2+
--- NOTE | 2025-02-26 18:20 | EDS_ITS ---
HPI History of Present Illness Chief Complaint: Complaint Informant: patient Onset/Context/Timing Onset: Today Context: Gradual Onset Timing: Continuous Quality: Red bloody and clots Location: Urine Worsened by: Nothing Relieved by: Nothing Narrative Narrative: Patient presents with hematuria that began today. Patient states it has been getting worse throughout the day. Patient states he passed some large clots in his urine. Patient denies any fevers or chills. Patient states nothing makes his urine worse and nothing makes it better. Patient denies any nausea or vomiting. Patient denies any neck or back pain. Patient denies any chest pain or shortness of breath. Patient is not on any anticoagulants. Patient states his has been having a viral illness at home. [facility] Medical History Mixed hyperlipidemia Anxiety Chest pain Cerebellar stroke Stroke Gout BPH (benign prostatic hyperplasia) Essential (primary) hypertension Dizziness Home Medications ?Medication ?Instructions ?Recorded ?Last Taken ?Type amlodipine 10 mg tablet 10 mg PO QHS blood pressure 04/25/18 01/10/24 History lisinopril 40 mg tablet 40 mg PO QHS blood pressure 04/25/18 04/24/18 History metoprolol tartrate 50 mg tablet 50 mg PO QHS blood pr essure 04/25/18 04/24/18 History atorvastatin 80 mg tablet 80 mg PO QHS #90 tabs Unknown Rx aspirin 81 mg tablet,delayed 81 mg PO DAILY #90 tabs 0 01/06/24 01/10/24 Rx release (Adult Aspirin Regimen) clonazepam 0.5 mg tablet (Klonopin) 0.5 mg PO BID PRN anxiety 01/06/24 Unknown History multivitamin with minerals-folic 1 tab PO DAILY Unknown History acid 80 mcg chewable tablet (Centrum Adult 50 Plus) clopidogrel 75 mg tablet 75 mg PO QDAY 02/20/25 Unkno wn History nitrofurantoin 100 mg PO Q12 #10 CAPSULES 0 02/26/25 Unknown Rx monohydrate/macrocrystals 100 mg capsule Allergy/AdvReac Type Severity Reaction Status Date / Time Penicillins AdvReac Severe as a Verified 02/26/25 17:09 child, passed out after a dental appt Family History Father Hypertension CVA (cerebral vascular accident) Heart disease Mother Cancer Surgical History History of coronary artery stent placement (01/11/24) History of prostate surgery Social History Smoking Status: Never smoker alcohol intake: never ROS ROS ED Constitutional Constitutional ED: Denies chills or fever(s) Eyes Eyes: Denies blurry vision or change in vision ENT ENT ED: Denies rhinorrhea or sore throat Cardiovascular Cardiovascular: Denies chest pain or palpitations Respiratory/Chest Respiratory/Chest: Denies cough or dyspnea Gastrointestinal Gastrointestinal: Denies nausea or vomiting Genitourinary Genitourinary ED: Reports hematuria; Denies dysuria Musculoskeletal Musculoskeletal: Denies back pain or neck pain Integumentary Denies abscess or rash Neurologic Neurologic: Denies headache(s) or weakness Allergic/Immunologic Allergic/Immunologic ED: Denies mouth swelling or urticaria EXAM Physical Exam Const Vital Signs: 02/26/25 17:10 02/26/25 20:00 Temperature 98.6 F Temperature Source Oral Pulse Rate 81 70 Respiratory Rate 18 16 Blood Pressure 180/91 H 147/83 H Blood Pressure Mean 120 104 Pulse Ox 99 97 Oxygen Delivery Method Room Air Room Air Positive well nourished and well developed Constitutional Narrative: BMI is 27.3. General Appearance ED: well developed and NAD HEENT Reports moist mucous membranes Neck supple and no JVD Resp normal respiratory effort and clear to auscultation bilaterally Cardio regular rate and regular rhythm GI non-tender and non-distended Palpation: soft Back/Spine no CVA tenderness Neuro oriented x3, CN's II-XII intact bilaterally and no sensory deficits noted Sensorium / Orientation: alert Motor Exam: strength 5/5 throughout Psych mental status grossly normal MDM MDM MDM Narrative Medical decision making narrative: Differential diagnosis includes hemorrhagic cystitis, ureteral calculus, bladder mass, renal mass, and coagulopathy. CBC will be obtained to assess for leukocytosis and anemia. Comprehensive metabolic profile will be obtained to assess for hepatic function, renal function, and electrolyte abnormality. PT with INR and PTT will be obtained to assess for coagulopathy. Urinalysis will be obtained to assess for urinary tract infection and hematuria. History & Record Review Additional record(s) reviewed:: Prior outpatient record and Prior labs Lab Data Attestation: I reviewed the patient's lab results. Lab results narrative: Urinalysis was reviewed. Leukocyte esterase was 25. There are 10-25 white blood cells. Occult blood was 250 with greater than 100 red blood cells. There is 2+ bacteria. CBC was reviewed and was within normal limits. Comprehensive metabolic profile was reviewed and was within normal limits. PT with INR and PTT were reviewed and were within normal limits. Labs: Laboratory Results - last 24 hr 02/26/25 02/26/25 17:30 18:34 WBC 4.6 RBC 4.99 Hgb 16.4 Hct 45.3 MCV 90.8 MCH 32.9 H MCHC 36.2 H RDW Std Deviation 41.1 RDW Coeff of Pavel 12.6 Plt Count 198 MPV 8.6 Immature Gran % (Auto) 0.200 Neut % (Auto) 58.3 Lymph % (Auto) 29.2 [place] % (Auto) 10.2 H Eos % (Auto) 1.7 Baso % (Auto) 0.4 Absolute Neuts (auto) 2.7 Absolute Lymphs (auto) 1.34 Nucleated RBC % 0 PT 13.1 INR 1.0 APTT 25.6 Sodium 140 Potassium 3.7 Chloride 105 Carbon Dioxide 19.5 L Anion Gap 15 BUN 9 Creatinine 0.79 Estim Creat Clear Calc 78.58 Est GFR (MDRD) Non-Af 91 BUN/Creatinine Ratio 11.0 Glucose 91 Calcium 9.7 Total Bilirubin 0.69 AST 42 H ALT 39 Alkaline Phosphatase 121 Total Protein 7.5 Albumin 4.6 Globulin 2.9 Albumin/Globulin Ratio 1.6 Urine Color Red Urine Clarity Cloudy Urine pH 7.0 Ur Specific [place] 1.010 Urine Protein 500 H Urine Glucose (UA) Normal Urine Ketones Negative Urine Occult Blood 250 H Urine Nitrite Negative Urine Bilirubin Negative Urine Urobilinogen Normal Ur Leukocyte Esterase 25 H Urine RBC > 100 SEEN Urine WBC 10-25 SEEN Ur Squamous Epith Cells 0-5 SEEN Amorphous Sediment 2+ Urine Bacteria 2+ Urine Mucus 0 SEEN Radiography Diagnostic Testing: Clinical Impression(s) from Imaging Studies Abdomen/Pelvis CT 02/26/25 18:21 IMPRESSION: Severely enlarged prostate protruding of the posterior wall of the urinary bladder. Correlate with PSA. Hyperdense material within the urinary bladder lumen which may represent blood products. A mass can not be excluded. Reading Location: [place] [address] CT scan of the abdomen and pelvis was obtained. There is hyperdense material within the urinary bladder which could represent blood. Mass is not excluded. There is an enlarged prostate. There is no other acute abnormality noted. This was interpreted by the radiologist and was also independently reviewed by leila butler. Treatment and Re-Evaluation :: Patient was advised of his findings. Urine culture was ordered. Patient was given a prescription for Macrobid. Patient was given his first dose here. Patient was instructed to drink plenty of fluids. Patient was instructed to take Tylenol for any pain. Patient was given a referral for Dr. Keller. Patient was instructed to follow-up in 3 to 5 days. Patient was instructed to return if worse in any way. Patient understood and was agreeable with the plan. All questions were answered. Discharge Plan Triage Chief Complaint: Complaint Other Complaint: Anxiety ED Provider: Hitesh Portillo Dx/Rx/DC Orders Clinical Impression: Hemorrhagic cystitis, Essential (primary) hypertension, BPH (benign prostatic hyperplasia) Instructions: ED BPH (Enlarged Prostate), ED Bladder Infection, Male (Adult) Prescriptions: New nitrofurantoin monohyd/m-cryst 100 mg capsule 100 mg PO Q12 Qty: 10 0RF No Action clonazepam [Klonopin] 0.5 mg tablet 0.5 mg PO BID PRN (Reason: anxiety) aspirin [Adult Aspirin Regimen] 81 mg tablet,delayed release (DR/EC) 81 mg PO DAILY Qty: 90 3RF Centrum Adult 50 Plus 80 mcg tablet,chewable 1 tab PO DAILY amlodipine 10 MG tablet 10 mg PO QHS Patient Comments: TAKE 1 TABLET EVERY DAY metoprolol tartrate 50 MG tablet 50 mg PO QHS Patient Comments: TAKE 1 TABLET BY MOUTH ONCE DAILY lisinopril 40 MG tablet 40 mg PO QHS Patient Comments: TAKE 1 TABLET BY MOUTH ONCE DAILY atorvastatin 80 MG tablet 80 mg PO QHS Qty: 90 0RF clopidogrel 75 mg tablet 75 mg PO QDAY Primary Care Provider: Bhaskar Shepherd Referrals: Ramy Keller MD [Med Staff - Active Staff] - 3-5 Days Bhaskar Shepherd MD [Primary Care Provider] - 5-7 Days Print Language: [place] Disposition Disposition: Home, Self Care Discharge Date/Time: 02/26/25 21:42
--- NOTE | 2025-02-26 18:21 | CT_ITS ---
PROCEDURE: ABDOMEN/PELVIS W IV CONT ONLY 02/26/2025 REASON FOR EXAM: HEMATURIA TECHNIQUE: Abdomen and pelvis CT with intravenous contrast. Coronal and Sagittal reconstruction series were provided. CONTRAST: Isovue-300 VOLUME: 100 mL. One or more dose reduction techniques were used (e.g., Automated exposure control, adjustment of the mA and/or kV according to patient size, use of iterative reconstruction technique. RADIATION DOSE SUMMARY: DLP: 1022.68 mGycm COMPARISON: None. FINDINGS: Lung bases: Clear. Liver: Normal size. No mass. Gallbladder: Normal. Spleen: Normal. Pancreas: Normal. 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 Kidneys: Bilateral kidney cysts. Additional subcentimeter hypodense lesions that are too small to characterize. Bladder: Enlarged prostate is protruding into the posterior wall of the urinary bladder. Internal hyperdensity within the urinary bladder. Mass can not be excluded. Reproductive Organs: Severely enlarged prostate measuring 6.3 x 6.0 cm. Bowel: Colonic diverticulosis. No surrounding inflammatory changes. Normal caliber large and small bowel. Lymph nodes: None suspicious. Vasculature: Mild to moderate atherosclerosis. Peritoneum / Retroperitoneum: Normal. Bones: Severe degenerative changes. Grade 1 anterolisthesis of L4 on L5 with a bilateral pars defect. CT/Abdomen/Pelvis W IV Cont ONLY IMPRESSION: Severely enlarged prostate protruding of the posterior wall of the urinary blad keegan. Correlate with PSA. Hyperdense material within the urinary bladder lumen which may represent blood products. A mass can not be excluded. Reading Location: [place] [id number]
[2025-02-26] MEDS: 0.9% Normal Saline (1000mL) 1,000 ML 1000 ML IV (18:31)
[2025-02-26 18:48] LABS: Absolute Lymphocyte Count 1.34 X10^3/uL (0.83-4.51); Absolute Neutrophil Count 2.7 X10^3/uL (2.0-7.7); Basophil# 0.02 X10^3/uL; Basophil% 0.4 % (0-1); Eosinophil# 0.08 X10^3/uL; Eosinophils% 1.7 % (0-5); Hematocrit 45.3 % (40-54); Hemoglobin 16.4 g/dL (13.0-16.5); Lymphocyte # 1.34 X10^3/ul (0.83-4.51); Lymphocyte % 29.2 % (19-41); Mean Corp Hgb Conc 36.2 g/dL (32-36); Mean Corpuscular Hgb 32.9 pg (27.0-32.0); Mean Corpuscular Volume 90.8 fL (80-94); Mean Platelet Vol. 8.6 fl (6.2-12.0); Monocyte# 0.47 X10^3/uL; Monocyte% 10.2 % (0-10); NRBC Flagged by Analyzer 0 % (0-5); Neutrophil # 2.67 X10^3/uL (2.7-7.7); Neutrophil % 58.3 % (47-70); Platelet Count 198 K/mm3 (150-450); RBC Distribution Width CV 12.6 % (11.6-14.6); RBC Distribution Width SD 41.1 fl (35.1-43.9); Red Blood Count 4.99 M/mm3 (4.6-6.2); White Blood Count 4.6 K/mm3 (4.4-11.0)
[2025-02-26 19:02] LABS: ALB/GLOB Ratio 1.6 RATIO (0.9-2.4); AST(SGOT) 42 U/L (<=37); Alanine Aminotransfer ALT/SGPT 39 U/L (<=46); Albumin, Serum 4.6 g/dL (3.4-4.8); Alkaline Phosphatase 121 U/L (40-129); Anion Gap 15 (5-15); BUN 9 mg/dL (4-19); Calcium,Total 9.7 mg/dL (7.6-11.0); Carbon Dioxide 19.5 mmol/L (21.0-32.0); Chloride 105 mmol/L (98-108); Creatinine, Serum 0.79 mg/dL (0.70-1.20); EST Glomerular Filtration Rate 91 (>60); Estimated Creatinine Clearance 78.58 ml/min (50-250); Globulin 2.9 g/dL (2.2-4.2); Glucose 91 mg/dL (70-99); Potassium 3.7 mmol/L (3.3-5.1); Protein, Total 7.5 g/dL (5.9-8.4); Sodium Level 140 mmol/L (133-145); Total Bilirubin 0.69 mg/dL (0.00-1.30)
[2025-02-26 19:10] LABS: Prothrombin Time (Protime)PT. 13.1 SECONDS (11.7-14.9)
[2025-02-26 19:11] LABS: Partial Thromboplast Time 25.6 Seconds (24.1-36.2)
[2025-02-26 20:00] VITALS: BP 147/83; PULSE 70; RESP 16; O2SAT 97
[2025-02-26] MEDS: Nitrofurantoin Macrocrystals 100 MG Capsule PO (20:41)
== END 2025-02-26 21:42 | disposition home or self-care (01) ==
PROVIDERS: Emergency Provider Emergency Medicine; PCP Family Medicine; Visit Provider Emergency Medicine
DX: N30.90 Cystitis, unspecified without hematuria (principal); N40.0 Benign prostatic hyperplasia without lower urinary tract symptoms; I10 Essential (primary) hypertension; Z86.73 Personal history of transient ischemic attack (TIA), and cerebral infarction without residual deficits; Z95.5 Presence of coronary angioplasty implant and graft
CPT/HCPCS: 74177; 80053; 81001; 85025; 85610; 85730; 87086; 96360; 99284; Q9967; A4216

== ENCOUNTER → 2025-03-08 | Outpatient (CLI) | payer MEDICARE, OTHER, SELFPAY ==
[2024-05-15 07:53] VITALS: BMI 27.1
== END | disposition home or self-care (01) ==
LOC: MFPLAB 11:06
PROVIDERS: PCP Family Medicine; Visit Provider Family Medicine
DX: N40.0 Benign prostatic hyperplasia without lower urinary tract symptoms (principal)
CPT/HCPCS: 36415; 84153

== ENCOUNTER 2025-03-18 09:45 | Day surgery (SDC) | payer MEDICARE, OTHER, SELFPAY ==
[2024-05-15 07:53] VITALS: BMI 27.1
--- NOTE | 2025-03-05 19:05 | PAT.ANE_ITS ---
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 When Was Last Pacemaker Check QUESTION #4 FULL TEXT: You/Your Family Experience fever (hyperthermia) with Anesthesia Last Oral Intake Last Oral intake: Last Oral Intake NPO since Meds taken in AM with sips of water? 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 Female No 03/05/25 13:30 HX of Motion Sickness No 03/05/25 13:30 HX of N/V After Surgery No 03/05/25 13:30 Non-Smoker Yes 03/05/25 13:30 Duration of Surgery greater Yes 03/05/25 13:30 than 60 minutes Number of Risk Factors 2 03/05/25 13:30 PONV Score Moderate Risk 03/05/25 13:30 Height & Weight Height & Weight: Anesthesia: Height & Weight Height 5 ft 10 in 01/31/25 13:30 Respiratory Assessment Respiratory Assessment - lock maintenance supervisor: Respiratory Tract Infection Hx - lock maintenance supervisor Hx Respiratory Tract Infection No 03/05/25 13:30 STOP Sleep Apnea STOP Sleep Apnea - lock maintenance supervisor: STOP Sleep Apnea - lock maintenance supervisor Hx Hypertension Yes: CONTROLLED WITH MED 03/05/25 13:30 Hx Sleep Apnea No 03/05/25 13:30 CPAP BIPAP Do you snore loudly (louder No 03/05/25 13:30 than talking or can be heard Do you often feel tired/ No 03/05/25 13:30 fatigued/ sleepy during daytime? Has anyone observed you stop No 03/05/25 13:30 breathing during sleep? STOP Results Negative 03/05/25 13:30 QUESTION #5 FULL TEXT : Do you snore loudly (louder than talking or can be heard through closed doors)? 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 Specify any problems Hx of Preganancy in last 3 N/A 03/05/25 13:30 Months Nurse Filling Out Transfusion DSCHRIBER 03/05/25 13:30 & Questions: Date: 03/05/25 03/05/25 13:30 Time: 13:31 03/05/25 13:30 Patient unable to answer at this time (ie. confused, unrespo /Reproduction History /Reproductive History - lock maintenance supervisor: /Reproductive Hx- lock maintenance supervisor Hx Now No 03/05/25 13:30 Gestational Age (in weeks): EDC: Hx Hx Para Hx Section SAB No 03/05/25 13:30 [facility] Medical History (Updated 03/05/25 @ 13:36 by Terra Woodall) Alcohol use TIA (transient ischemic attack) Non-smoker History of stress test History of echocardiogram Cardiology follow-up encounter Mixed hyperlipidemia Anxiety BPH (benign prostatic hyperplasia) Essential (primary) hypertension Home Medications ?Medication ?Instructions ?Recorded ?Last Taken ?Type amlodipine 10 mg tablet 10 mg PO QHS blood pressure 04/25/18 01/10/24 History lisinopril 40 mg tablet 40 mg PO QHS blood pressure 04/25/18 04/24/18 History metoprolol tartrate 50 mg tablet 50 mg PO QHS blood pr essure 04/25/18 04/24/18 History atorvastatin 80 mg tablet 80 mg PO QHS #90 tabs Unknown Rx aspirin 81 mg tablet,delayed 81 mg PO DAILY #90 tabs 0 01/06/24 01/10/24 Rx release (Adult Aspirin Regimen) clonazepam 0.5 mg tablet (Klonopin) 0.5 mg PO BID PRN anxiety 01/06/24 Unknown History multivitamin with minerals-folic 1 tab PO DAILY Unknown History acid 80 mcg chewable tablet (Centrum Adult 50 Plus) clopidogrel 75 mg tablet 75 mg PO QHS 02/20/25 Unknow n History Allergy/AdvReac Type Severity Reaction Status Date / Time Penicillins AdvReac Severe as a Verified 03/05/25 13:27 child, passed out after a dental appt Family History Father Hypertension CVA (cerebral vascular accident) Heart disease Mother Cancer Surgical History (Updated 03/05/25 @ 13:36 by Terra Woodall) History of cardiac catheterization History of coronary artery stent placement (01/11/24) History of prostate surgery Social History Smoking Status: Never smoker alcohol intake: never Audit: Pertinent Findings Pertinent Findings EKG Perinent findings: 01/06/2024. Sinus rhythm. Nonspecific T wave abnormality. Stress test pertinent findings: 01/03/2024. EF 63%. Decreased perfusion of the anterior wall and apex suggestive of anterior apical ischemia at a moderate wo rkload. Echo (EF%) pertinent findings: 04/27/18. EF 65%. No aortic stenosis noted. Heart catheterization pertinent findings: January 10, 2024. EF 60%. LAD with 95% proximal to mid stenosis. Mid circumflex showed mild 35 to 40% stenosis. RCA had mild irregularities. Consult pertinent findings: 01/17/2025. Yesy [facility]. 1. Positive high-grade LAD stenosis on cardiac cath January 10, 2024. Sent to [facility] for guided PCI to the proximal to mid LAD with 2 overlapping stents. This appears stable. Patient is 1 year out from stent and may discontinue Plavix. Patient is going to pursue a coronary surgery. No contraindication from a cardiac standpoint. 2. Hypertension?chronic-elevated today, but better controlled at cardiac rehab. Recommendation Anesthesia Recommendation Anesthesia recommendation: OPTIMIZED for anesthesia
[2025-03-18] VITALS (12 sets, daily range): BP systolic 102–154; BP diastolic 62–83; PULSE 52–69; RESP 12–18; TEMP 36.3–36.9; O2SAT 92–97; BMI 27.6
[2025-03-18] MEDS: Lactated Ringers 1,000 ML 15 ML IV ×2 (10:25→13:37)
--- NOTE | 2025-03-18 11:09 | PCM.HP.BLA ---
History and Physical Date of Admission: 03/18/25 Intake Vital Signs 01/17/2509:54 01/31/2513:30 Height 5 ft 10 in 5 ft 10 in Weight: 196 lb 192 lb BMI 28.1 27.5 BP 164/76 H 134/72 H Blood Pressure Location Lt brachial Rt brachial Position Sitting Sitting Respiration 18 17 Pulse 57 L 66 Pulse Source Monitor Monitor Temp 97.6 F L Temp Source Temporal Pulse Oximetry (%) 98 95 Oxygen Delivery Method room air room air Intake Visit Reasons: DISCUSS HERNIA SURGERY Chief Complaint: hernia Is patient in pain?: No Allergies Penicillins Adverse Reaction (Severe, Verified 01/31/25 13:32) as a child, passed out after a dental appt Medications ?Medication ?Instructions ?Recorded ?Confirmed ?Type amlodipine 10 mg tablet 10 mg PO QHS blood pressure 04/25/18 01/31/25 History lisinopril 40 mg tablet 40 mg PO QHS blood pressure 04/25/18 01/31/25 History metoprolol tartrate 50 mg tablet 50 mg PO QHS blood pressure 04/25/18 01/31/25 History atorvastatin 80 mg tablet 80 mg PO QHS #90 tabs 04/27/18 01/31/25 Rx aspirin 81 mg tablet,delayed 81 mg PO DAILY #90 tabs 01/06/24 01/31/25 Rx release (Adult Aspirin Regimen) clonazepam 0.5 mg tablet (Klonopin) 0.5 mg PO BID PRN anxiety 01/06/24 01/31/25 History multivitamin with minerals-folic 1 tab PO DAILY 03/14/24 01/31/25 History acid 80 mcg chewable tablet (Centrum Adult 50 Plus) Have you fallen in the past year?: No PFSH Medical History Mixed hyperlipidemia Anxiety Chest pain Cerebellar stroke Stroke Gout BPH (benign prostatic hyperplasia) Essential (primary) hypertension Dizziness Surgical History History of coronary artery stent placement (01/11/24) History of prostate surgery Family History Father Hypertension CVA (cerebral vascular accident) Heart diseaseMother Cancer Social History Smoking Status: Never smoker alcohol intake: never HPI HPI HPI: Patient is a 79-year-old male here for left inguinal hernia. I saw him March of last year but he had a recent heart stent and could not come off of his Plavix. At that time the patient had a large reducible hernia. Currently the patient is having no bulging. He is still having pain he says the pain is moved toward the midline. He says the hernia has not bulged in few months. He says he still has pain with almost any activity ROS General General: Yes weight change; No appetite, fatigue, colon cancer, breast cancer or weakness HEENT HEENT: No difficulty swallowing, eye injury, eye surgery, swollen glands or hoarseness Endo Endocrine: No thyroid disease, diabetes mellitus, thyroid cancer, Hair loss, heat intolerance or cold intolerance Skin Skin: No rash or changing moles Musc Musculoskeletal: No back problems, arthritis, rheumatoid arthritis, gout or joint pain Cardio Cardiovascular: Yes high blood pressure and heart stent; No murmur, pacemaker, heart disease, atrial fibrillation, heart attack, palpitations, shortness of breath with exertion or chest pain Psych Psychiatric: No depression, anxiety or hearing voices Resp Respiratory: No shortness of breath, No sleep apnea, No cough, No COPD, No asthma, No emphysema and No wheezing Gastro Gastrointestinal: No abdominal pain, No nausea or vomiting, No diarrhea, No constipation, No blood in stool, No acid reflux, No hemorrhoids, No ulcers, No gallbladder problem and No black,tarry stools [place] Hematologic: No blood thinners, No blood disorders, No bleeding, No anemia and No blood clots Neuro Neurologic: No system reviewed and no additional complaints, except as documented, No as per HPI, No abnormal gait, No abnormal hearing, No abnormal movements, No abnormal speech, No behavioral changes, No burning sensations, No confusion, No convulsions, No disequilibrium, No dizziness, No localized weakness, No frequent falls, No headache(s), No lack of coordination, No loss of vision, No memory loss, No numbness, No other visual disturbances, No radicular pain, No restless legs, No sensory deficit, No syncope, No tingling, No tremor(s), No weakness and No other Exam Const General: cooperative Orientation: alert and oriented x3 HENMT Head: normal to inspection Neck Neck: normal visual inspection and full ROM Chest Chest palpation & inspection: normal inspection of the chest Resp Effort & Inspection: normal respiratory effort Auscultation: clear to auscultation bilaterally Cardio Rate: regular rate Rhythm: regular rhythm GI Inspection: non-distended Palpation: soft and nontender Skin General: no rashes or lesions noted Neuro General: patient alert and patient oriented x3 Extrem General: full ROM Psych Appearance: grossly normal Mental Status: mental status grossly normal Assessment and Plan Assessment and Plan (1) Inguinal hernia: Status: Acute Plan: The patient had a left inguinal hernia which was readily reducible back in March of last year. He reports it is not bulge in 3 months but he is still having pain and the pain radiates more toward the midline than over on the left. He says any activity causes him to have pain that makes him recover for 2 days afterwards. He would like this repaired. He does have a history of hernia repair more than 20 years ago. He does not think mesh was used. I discussed robotic assisted left inguinal hernia repair with mesh. I discussed repairing the opposite side if there is a hernia present and the patient would like that done. I also discussed the possibility of not seeing a hernia or defect. Patient understands. I discussed the risks of the surgery such as bleeding, infection, injury to surrounding organs such as the blood supply to the testicle or the bowel or bladder. Patient understands the risks and is willing to proceed with hernia repair. He will hold his aspirin for 5 days. He is off his Plavix. Brijesh Minor MD Pager: [facility] [address] [place] [address], [address] [place] [address] Office: I have examined the patient and the H&P has been reviewed. There are no clinical changes since date of exam.
--- NOTE | 2025-03-18 11:31 | PCM.PRE.AN2 ---
ASA Classification* ASA Classification ASA Classification: 3 Assessment & Plan Anesthesia* Anesthesia Assessment Anesthesia Assessment: Discussed sedation and/or anesthesia options, risks, benefits, and alternatives with patient/parents/legal guardian/POA. Questions invited. The patient/parents/legal guardian/POA seems to understand and agrees to proceed with anesthesia plan. Reviewed the physical assessment, medical history, allergy history and patient home medications list prior to surgery/procedure/anesthetic and documented any changes. Performed airway and anesthesia risk assessments. Anesthesia Type Anesthesia Type: General History Source History Obtained from:: Patient and Chart Anesthesia Focused Assessment* Temperature: 98.4 F Pulse Rate: 52 Blood Pressure: 154/83 Respiratory Rate: 16 Pulse Ox: 97 Oxygen Delivery Method: Room Air Airway Assessment Mouth opens: >3 cm Mallampati Score: III Teeth Condition: Intact Neck Range of motion (ROM): Full ROM Labs Anesthesia Preop lab: CBC WBC 4.6 K/mm3 (4.4-11.0) 02/26/25 18:02/26/25 RBC 4.99 M/mm3 (4.6-6.2) 02/26/25 18:34 02/26/25 Hgb 16.4 g/dL (13.0-16.5) 02/26/25 18:34 02/26/25 Hct 45.3 % (40-54) 02/26/25 18:34 02/26/25 Plt Count 198 K/mm3 (150-450) 02/26/25 18:34 02/26/25 CHEMISTRY Potassium 3.7 mmol/L (3.3-5.1) 02/26/25 18:34 02/26/25 Sodium 140 mmol/L (133-145) 02/26/25 18:34 02/26/25 Magnesium 2.2 mg/dL (1.6-2.6) 04/25/18 09:23 04/25/18 BUN 9 mg/dL (4-19) 02/26/25 18:34 02/26/25 Creatinine 0.79 mg/dL (0.70-1.20) 02/26/25 18:34 02/26/25 Glucose 91 mg/dL (70-99) 02/26/25 18:34 02/26/25 POC Glucose 125 mg/dL (70-110) H 04/25/18 11:28 04/25/18 TSH 1.70 uIU/mL (0.358-3.74) 07/02/19 12:30 07/02/19 COAG PT 13.1 SECONDS (11.7-14.9) 02/26/25 18:34 02/26/25 Pre-Assessment Diagnosis/Proposed Procedure Planned Operative Procedure(s): LAP ROBOTIC INGUINAL HERNIA LEFT IWTH MESH Anesthesia History 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 When Was Last Pacemaker Check QUESTION #4 FULL TEXT: You/Your Family Experience fever (hyperthermia) with Anesthesia Last Oral Intake Last Oral intake: Last Oral Intake NPO since 07:00 03/18/25 10:42 Meds taken in AM with sips of Yes 03/18/25 10:42 water? Meds patient instructed to metoprolol 03/18/25 10:42 take am of surgery PONV PONV - learning coordinator: PONV - learning coordinator Female No 03/05/25 13:30 HX of Motion Sickness No 03/05/25 13:30 HX of N/V After Surgery No 03/05/25 13:30 Non-Smoker Yes 03/05/25 13:30 Duration of Surgery greater Yes 03/05/25 13:30 than 60 minutes Number of Risk Factors 2 03/05/25 13:30 PONV Score Moderate Risk 03/05/25 13:30 Height & Weight Height & Weight: Anesthesia: Height & Weight Height 5 ft 10 in 03/18/25 10:42 Weight: 87.5 kg 03/18/25 10:42 Body Mass Index (BMI) 27.6 03/18/25 10:42 Respiratory Assessment Respiratory Assessment - learning coordinator: Respiratory Tract Infection Hx - learning coordinator Hx Respiratory Tract Infection No 03/05/25 13:30 STOP Sleep Apnea STOP Sleep Apnea - learning coordinator: STOP Sleep Apnea - learning coordinator Hx Hypertension Yes: CONTROLLED WITH MED 03/05/25 13:30 Hx Sleep Apnea No 03/05/25 13:30 CPAP BIPAP Do you snore loudly (louder No 03/05/25 13:30 than talking or can be heard Do you often feel tired/ No 03/05/25 13:30 fatigued/ sleepy during daytime? Has anyone observed you stop No 03/05/25 13:30 breathing during sleep? STOP Results Negative 03/05/25 13:30 QUESTION #5 FULL TEXT : Do you snore loudly (louder than talking or can be heard through closed doors)? 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 Specify any problems Hx of Preganancy in last 3 N/A 03/05/25 13:30 Months Nurse Filling Out Transfusion DSCHRIBER 03/05/25 13:30 & Questions: Date: 03/05/25 03/05/25 13:30 Time: 13:31 03/05/25 13:30 Patient unable to answer at this time (ie. confused, unrespo /Reproduction History /Reproductive History - learning coordinator: /Reproductive Hx- learning coordinator Hx Now No 03/05/25 13:30 Gestational Age (in weeks): EDC: Hx Hx Para Hx Section SAB No 03/05/25 13:30 Active Medications Active Medications: Current Medications Generic Name Dose Route Start Last Admin Trade Name Freq PRN Reason Stop Dose Admin Clindamycin Phosphate 900 mg in 50 mls @ 75 mls/hr 03/18/25 11:30 Cleocin IV 03/18/25 12:09 INTRAOP ONE Lactated Ringer's 1,000 mls @ 15 mls/hr 03/18/25 10:00 03/18/25 10:25 IV 15 mls/hr .Q48H RUBENS Administration PFSH Medical History Alcohol use TIA (transient ischemic attack) Non-smoker History of stress test History of echocardiogram Cardiology follow-up encounter Mixed hyperlipidemia Anxiety BPH (benign prostatic hyperplasia) Essential (primary) hypertension Home Medications ?Medication ?Instructions ?Recorded ?Last Taken ?Type amlodipine 10 mg tablet 10 mg PO QHS blood pressure 04/25/18 03/17/25 18:00 History lisinopril 40 mg tablet 40 mg PO QHS blood pressure 04/25/18 03/17/25 18:00 History metoprolol tartrate 50 mg tablet 50 mg PO QHS blood pressure 04/25/18 03/18/25 07:00 History atorvastatin 80 mg tablet 80 mg PO QHS #90 tabs 04/27/18 03/17/25 18:00 Rx aspirin 81 mg tablet,delayed 81 mg PO DAILY #90 tabs 01/06/24 03/17/25 18:00 Rx release (Adult Aspirin Regimen) clonazepam 0.5 mg tablet (Klonopin) 0.5 mg PO BID PRN anxiety 01/06/24 03/17/25 18:00 History multivitamin with minerals-folic 1 tab PO DAILY 03/14/24 Unknown History acid 80 mcg chewable tablet (Centrum Adult 50 Plus) clopidogrel 75 mg tablet 75 mg PO QHS 02/20/25 03/12/25 History dutasteride 0.5 mg capsule 0.5 mg PO DAILY 03/18/25 03/17/25 18:00 History tamsulosin 0.4 mg capsule 0.4 mg PO QHS 03/18/25 03/17/25 18:00 History Allergy/AdvReac Type Severity Reaction Status Date / Time Penicillins AdvReac Severe as a Verified 03/18/25 10:32 child, passed out after a dental appt Family History Father Hypertension CVA (cerebral vascular accident) Heart disease Mother Cancer Surgical History History of cardiac catheterization History of coronary artery stent placement (01/11/24) History of prostate surgery Social History Smoking Status: Never smoker alcohol intake: never Review of Systems (Anesthesia) ROS Narrative System reviewed and no additional complaints, except as documented.
[2025-03-18] MEDS: Clindamycin 900 MG/50 ML BAG 75 MG IV (11:48)
[2025-03-18] MEDS: Bupivacaine Mpf 0.5% 30 ML VIAL (12:30)
--- NOTE | 2025-03-18 12:47 | OP.PCM_ITS ---
Operative Report (Standard) Operative Information Date of Procedure: 03/18/25 Pre-Operative Diagnosis: Left inguinal hernia Post-Operative Diagnosis: Left inguinal hernia Surgery/Procedure Performed: Robotic assisted laparoscopic left inguinal hernia repair with mesh field laborer: Yes Melt [employer] Centrifugal Operator: Yanira Jacobs Tasks completed by equal opportunity assistant: Opening, Closing and Retracting Type of Anesthesia: General/Regional RN Documented Start/Stop Times: Operation Date: 03/18/25 11:30 Case Time Into Pre-Op 03/18/25 09:54 Out of Pre-Op 03/18/25 11:33 Anesthesia Start 03/18/25 11:40 Into Room 03/18/25 11:40 Procedure Start 03/18/25 12:00 Procedure Start Time: 12:00 Procedure Stop Time: 12:55 Select all DRAINS/GRAFTS/IMPLANTS that apply: Implanted device Implanted device details: ProGrip mesh in the left groin Estimated Blood Loss: 10 Specimen collected: No Description of surgery: Patient was brought to the operating room and general anesthesia was induced. Abdomen was prepped and draped in the usual sterile fashion. A midline incision was made superior to the umbilicus and deepened to the fascia. The fascia was elevated and Veress needle was placed into the abdomen and a drop test was performed. The abdomen was then insufflated to 15 mmHg. The Veress needle was removed. A port was placed. The camera is placed into the abdomen to inspect and there were no injuries from entry. Patient was placed in steep Trendelenburg position. Patient had an indirect left inguinal hernia. No hernia on the right. Under direct visualization an 8 mm port was placed on the left lateral abdomen as well as right lateral abdomen. The robot was then docked. Using electrocautery scissors an incision was made in the peritoneum in the left lower quadrant. The dissection was carried inferiorly until the hernia sac was encountered. The hernia sac was very long and extended into the scrotum. It was fully dissected free and reduced. Next a piece of ProGrip mesh was placed over the hernia defect. The peritoneum was then reapproximated using a running 3 OV lock suture. The mesh was completely covered by peritoneum at the end of the case. There was a small rent in the peritoneum which was closed with a 3-0 Vicryl suture. Next the ports were removed and the incisions were injected with local anesthetic. All the incisions were closed with interrupted 4-0 Monocryl sutures. Steri-Strips and bandages were applied. Scrotum was checked at the end of the case and continued both testicles. Patient was awoken and taken to PACU in stable condition and tolerated the procedure well. Surgical Findings: Left inguinal hernia Complications Complications: No Admit VTE Documentation VTE Mechan Device Prophylaxis: SCD's
--- NOTE | 2025-03-18 12:51 | EX.PCM.DISCH ---
Discharge Instructions Procedure Hernia Diet Discharge Diet: Light diet - advance as tolerated Activity Discharge Activity: May Not Drive (for 2-3 days or while taking narcotic pain meds.) and May Shower (with the bandage in place 1-2 days after surgery.) Lifting Restrictions: 20 pounds for 4 weeks. Additional Activity Instructions:: Climbing stairs is fine, walking is encouraged. Sitting in bed may be uncomfortable. Sitting up using your lateral muscles (sitting up sideways) is usually more comfortable. Do not drive, work heavy equipment of sign legal documents for 24 hours. If your hernia repair was an inguinal repair, you may have scrotal swelling, an ice pack and/or athletic support can provide more comfort. Pain medications may cause nausea, you should typically eat light foods as you take your pain medications. Pain medications may also cause constipation. If you have difficulty with this, discuss with your doctor. Alternate ibuprofen and Tylenol for pain control, oxycodone for breakthrough pain. Okay to resume aspirin on Tuesday Dressing / Incision Call your doctor if your incision/area has: Continuous Slow Oozing, Sudden Increased Bleeding, Increased Pain/ Swelling, Increased Redness and Foul Smelling Discharge Call your doctor if you observe: Fever of 101 or Higher Suture Line Care: Avoid Pulling/Pushing and Avoid Pinching/Bending Remove Dressing in: 2 days (Remove clear bandages in 2 days, remove Steri-Strips in 7 to 10 days.) Cleanse incision/area with: Soap & Water Follow Up Care Please Follow Up With: Brijesh Minor MD When: Please call to schedule 2 week follow up appointment. [phone] Test Results: Test results from this visit will be discussed in further detail at your follow-up appointment, if applicable. Discharge Plan Admission Attending Provider: Brijesh Minor Primary Care Provider: Bhaskar Shepherd Instructions Print Language: Lithuanian Discharge Orders/Prescriptions Prescriptions: New oxycodone 5 mg Tablet 5 - 10 mg PO Q4H PRN PRN (Reason: Pain Score 4-10) 5 Days Qty: 10 0RF No Action clonazepam [Klonopin] 0.5 mg tablet 0.5 mg PO BID PRN (Reason: anxiety) aspirin [Adult Aspirin Regimen] 81 mg tablet,delayed release (DR/EC) 81 mg PO DAILY Qty: 90 3RF Centrum Adult 50 Plus 80 mcg tablet,chewable 1 tab PO DAILY amlodipine 10 MG tablet 10 mg PO QHS Patient Comments: TAKE 1 TABLET EVERY DAY metoprolol tartrate 50 MG tablet 50 mg PO QHS Patient Comments: TAKE 1 TABLET BY MOUTH ONCE DAILY lisinopril 40 MG tablet 40 mg PO QHS Patient Comments: TAKE 1 TABLET BY MOUTH ONCE DAILY atorvastatin 80 MG tablet 80 mg PO QHS Qty: 90 0RF tamsulosin 0.4 mg capsule 0.4 mg PO QHS dutasteride 0.5 mg capsule 0.5 mg PO DAILY clopidogrel 75 mg tablet 75 mg PO QHS Referrals / Follow Up: Bhaskar Shepherd MD [Primary Care Provider] - Disposition Disposition (needs filled in before D/C Order can be placed): Home, Self Care
--- NOTE | 2025-03-18 13:07 | PCM.POST.ANE ---
Anesthesia: Postop Eval I Current Vital Signs Temperature: 97.4 F Pulse Rate: 69 Blood Pressure: 111/68 Respiratory Rate: 16 Pulse Ox: 93 Oxygen Delivery Method: Room Air Assessment Airway patent: Yes Spontaneous unlabored respirations: Yes Mental status: Awake and Calm nausea: No Vomiting: No Anesthesia Complication: No Fluid Hydration Crystalloid volume administer (ml): 700 Total IV fluid infused: 700 Progress Note Anesthesia document: Postop Eval 1 completed: Yes
--- NOTE | 2025-03-18 13:25 | POSTOPAN2_ITS ---
Anesthesia Postop Eval I Sum Postop Eval Completion status Anesthesia document: Postop Eval 1 completed: Yes Anesthesia Postop Eval I Summary Anesthesia Postop Eval I Summary: Anesthesia Postop Eval I: Assessment Summary Airway patent Yes 03/18/25 13:08 [employer][email or web address] Spontaneous unlabored Yes 03/18/25 13:08 CANDIE respirations Mental status Awake,Calm 03/18/25 13:08 [employer].DAVID nausea No 03/18/25 13:08 CANDIE Vomiting No 03/18/25 13:08 CANDIE Anesthesia Postop Eval I: Fluid Summary Crystalloid volume administer 700 03/18/25 13:08 CANDIE (ml) Colloids volume administered ( ml) Blood Product volume administered (ml) Total IV fluid infused 700 03/18/25 13:08 CANDIE Anesthesia Postop Eval I: Summary Notes Anesthesia Complication No 03/18/25 13:08 CANDIE Anesthesia Complication Comment: Post-operative progress note Anesthesia: Postop Eval II Evaluation Mental status: Awake Pain Level: 2 nausea: No Vomiting: No
[2025-03-18] MEDS: Acetaminophen 325 MG Tablet 650 MG PO (14:27)
[2025-03-18] MEDS: oxyCODONE 5 MG Tablet PO ×2 (14:28→15:34)
== END 2025-03-18 17:15 | disposition home or self-care (01) ==
LOC: SDC 09:45 → AC 09:47
PROVIDERS: PCP Family Medicine; Referring Provider Surgery; Visit Provider Surgery
PROC: 0YQ64ZZ Repair Left Inguinal Region, Percutaneous Endoscopic Approach (ICD-10-PCS; CPT 49650; principal; 2025-03-18 11:10)
DX: K40.90 Unilateral inguinal hernia, without obstruction or gangrene, not specified as recurrent (principal); E78.2 Mixed hyperlipidemia; I10 Essential (primary) hypertension; Z79.82 Long term (current) use of aspirin; Z79.899 Other long term (current) drug therapy; Z86.73 Personal history of transient ischemic attack (TIA), and cerebral infarction without residual deficits; Z95.5 Presence of coronary angioplasty implant and graft
CPT/HCPCS: 49650; S2900; 00840; C1781; J2405

== ENCOUNTER → 2025-08-27 | Outpatient (CLI) | payer MEDICARE, OTHER, SELFPAY ==
[2024-05-15 07:53] VITALS: BMI 27.1
[2025-08-27 11:09] LABS: AST(SGOT) 33 U/L (<=37); Alanine Aminotransfer ALT/SGPT 39 U/L (<=46); Albumin, Serum 4.4 g/dL (3.4-4.8); Alkaline Phosphatase 117 U/L (40-129); Bilirubin, Direct 0.37 mg/dL (0.00-0.30); Cholesterol 163 mg/dL (<=200); Globulin 2.5 g/dL (2.2-4.2); Low Density Lipoprotein Calc. 82 mg/dL; Triglycerides 167 mg/dL; Very Low Density Lipoprotein 33 mg/dL (5-40); cholesterol:hdl ratio screen 3.08
== END | disposition home or self-care (01) ==
LOC: LAB 09:35
PROVIDERS: PCP Family Medicine; Referring Provider Internal Medicine Cardiovascular Disease; Visit Provider Internal Medicine Cardiovascular Disease
DX: E78.2 Mixed hyperlipidemia (principal)
CPT/HCPCS: 36415; 80061; 80076